=== PATIENT | female | born 2000 | race American Indian/Alaskan Native ===

== ENCOUNTER 2022-02-19 10:10 | Emergency (ER) | payer OTHER, SELFPAY ==
[2022-02-19 10:23] VITALS: BP 125/65; PULSE 80; RESP 16; TEMP 36.7; O2SAT 99; BMI 23.6
--- NOTE | 2022-02-19 11:53 | ED_ITS ---
HPI - General Adult General Chief complaint: Abdominal Pain Stated complaint: 20 weeks , Contractions Time Seen by Provider: 02/19/22 11:03 Source: patient Mode of arrival: ambulatory Limitations: no limitations History of Present Illness HPI narrative: 22-year-old female 21 weeks with a due date of 07/06/2022 1 Therapuetic and 1 miscarriage presents to ED for lower abdominal pain since yesterday. Patient states pain has worsened this morning. Patient denies any upper abdominal pain, nausea, vomiting vaginal bleeding. Patient states no fever or chills. Patient states having white discharge. Related Data Allergies Allergy/AdvReac Type Severity Reaction Status Date / Time No Known Allergies Allergy Verified 02/19/22 10:29 Review of Systems Review of Systems: Lower abdominal pain Yes all other systems are reviewed and are negative [facility] Social History Social History Advance Directives: No Advance Directives Information Provided: No Physical Exam ED Vital Signs: Vital Signs - 24 hr 02/19/22 10:23 Temperature 98.0 F Pulse Rate 80 Respiratory Rate 16 Blood Pressure 125/65 Pulse Oximetry 99 Oxygen Delivery Method Room Air BMI result Body Mass Index 23.6 Const General: cooperative, healthy appearing, comfortable, no acute distress, well developed, alert, awake and Physically active Orientation/consciousness: oriented to time and patient oriented x3 HENMT Head: Yes normal to inspection, Yes No palpable skull fracture present, Yes normocephalic, Yes atraumatic and No abrasion Eyes General: appearance normal, both eyes and all related structures Neck Neck: Yes normal visual inspection, Yes full ROM, Yes no lymphadenopathy, Yes no meningeal signs, Yes trachea midline, Yes supple, No anterior neck swelling and No tender Chest Chest palpation & inspection: normal inspection of the chest and normal palpation of entire chest wall Resp Effort & Inspection: normal respiratory effort and able to speak in complete sentences Auscultation: clear to auscultation bilaterally Cardio Jugular venous distension: no JVD Heart sounds: S1 normal heart sound present and S2 normal heart sound present GI Inspection: Yes normal to inspection and No abdominal wall ecchymosis Palpation (GI): not firm, Tenderness to palpation present (GI) in the LLQ, in the RLQ and suprapubicly, no guarding and not rigid General: No CVA tenderness and Yes no CVA tenderness Back/Spine/Pelvis Back: no CVA tenderness, No CVA tenderness and No back tenderness Skin General skin exam: no rashes or lesions noted and elasticity normal Neuro General: oriented to time, patient oriented x3, gait normal, no meningeal signs and CN's II-XI intact bilaterally Cranial nerves: Yes CN's II-XII intact bilaterally Extrem General: Yes normal to inspection and Yes full ROM Psych Appearance: grossly normal, well kempt and not disheveled Course Course Course Narrative: Case discussed with Dr. Menendez of information security specialist recommends [facility] information security specialist be called for transfer to [facility]. He does not recommend further workup in the ER. Not recommend pelvic exam. Patient's heart tone 139. Reevaluation(s) Reevaluation #1: Patient comfortable in bed. Spoke with [facility] OBGYN Dr. Matos who agreed that patient should come over to [facility] for further evaluation. Patient signed consent to be transferred and will go with her own private car. Patient safe for discharge Time: 16:44 Medical Decision Making MDM Narrative Medical decision making narrative: Twenty weeks abdominal pain Discharge Plan Discharge Clinical Impression: Abdominal pain during Patient Disposition: [facility] Transfer Details: [facility] Instructions: Abdominal Pain in (ED) Additional Instructions: Go to [facility] we made immediately after receiving paperwork. Emergency symptoms to be aware of his severe abdominal pain, vaginal bleeding, vaginal discharge, weakness, passing out, or any other concerning symptoms. Return here or [facility] immediately if he had them. You were accepted by Dr. Matos Interventions: Acute Care Transfer Worksheet (ED) Last Done: 02/19/22 12:59 Discharge Date/Time: 02/19/22 13:01 Print Language: Greenlandic
--- NOTE | 2022-02-19 12:24 | P.CONOB_ITS ---
OB Consult Note - [facility] Data Service Date: 02/19/22 Primary Care Provider: Debby Parmar NP Narrative I was consulted on Erin Arredondo I who is a 22 year old female 4 para 1021 at 21 weeks presents to ED for lower abdominal pain since yesterday.? Patient states pain has worsened this morning.? Patient denies any upper abdominal pain, nausea, vomiting, no vaginal bleeding, or leakage of fluid .? Patient states no fever or chills.? Patient states having white vaginal discharge OB [facility] Social History Social History Advance Directives: No Advance Directives Information Provided: No Meds Allergies Allergy/AdvReac Type Severity Reaction Status Date / Time No Known Allergies Allergy Verified 02/19/22 10:29 OB - CN: A/P Assessment and Plan (1) with generalized abdominal pain, antepartum: Status: Acute Plan Recommended to transfer the patient to [facility] in an effort to decrease the delay in care since there is no maternity unit at [facility] and no available obstetrical resources. I spent a total of 20 minutes reviewing the chart, communicating to the ER provider and documenting in the medical record
== END 2022-02-19 13:01 | disposition short-term general hospital (02) ==
PROVIDERS: Emergency Provider Emergency Medicine Emergency Medical Services; PCP Nurse Practitioner Primary Care
DX: O26.892 Other specified pregnancy related conditions, second trimester (principal); R10.30 Lower abdominal pain, unspecified; Z3A.21 21 weeks gestation of pregnancy
CPT/HCPCS: 99285

== ENCOUNTER 2023-11-20 19:18 | Emergency (ER) | payer OTHER, SELFPAY ==
[2023-11-20 19:20] VITALS: BP 116/65; PULSE 77; RESP 16; TEMP 36.4; O2SAT 99; BMI 25.1
--- OUTSIDE RECORDS SUMMARY | 2023-11-21 01:24 | XMS_ITS | Continuity of Care Document ---
Author Organization [facility] Address Unknown Care Team Providers Care Lighting Engineering Technician Name Role Phone Kathy RUSH, Hector Greenberg Primary Care Physician [id number] Date(s): 11/18/21 - 12/18/21 [facility] Allergies, Adverse Reactions, Alerts No Known Allergies Medications Colace sodium 100 mg oral capsule 100 mg, 1, capsule, By Mouth, 2 times a day, PRN, # 60 capsule, Refills 2, Tot. Refills 2, Maintenance, for constipation, 11/18/21 15:52:00 EDT, Route to Pharmacy Electronically, [facility]/pharmacy #[id number], Partial fill upon patient request if the prescriptio... Start Date: 11/18/21 Status: Ordered PNV oral tablet 1 tablet, By Mouth, Daily, 0 Refills, Maintenance, 11/29/18 13:11:44 EDT Start Date: 11/29/18 Status: Ordered Unisom 25 mg oral tablet 1 tablet = 25 mg, By Mouth, Daily at bedtime, # 30 tablet, 0 Refills, Maintenance, 11/26/21 15:43:00 EDT, [facility]/pharmacy #[id number], Partial fill upon patient request if the prescription is for a schedule II opioid drug. Start Date: 11/26/21 Status: Ordered Vitamin B6 25 mg oral tablet 1 tablet = 25 mg, By Mouth, Daily, # 100 tablet, 0 Refills, Maintenance, 11/26/21 15:43:00 EDT, [facility]/pharmacy #[id number], Partial fill upon patient request if the prescription is for a schedule II opioid drug. Start Date: 11/26/21 Status: Ordered Problem List Condition Effective Dates Status Health Status Inform ant BMI 20.0-20.9, adult(Confirmed) Active History of depression(Confirmed) 1 Active History of marijuana use(Confirmed) Active IBS (irritable bowel syndrome)(Confirmed) 2 Active Encounter for supervision of other normal , second trimester(Confirmed) Active Placental abnormality(Confirmed) Active Rubella equivocal - needs MM R after delivery(Confirmed) Active 1States has feelings og depression. Would like to see therapist. 2Not taking medication for IBS Social History Social History Type Response Smoking Status Former smoker, quit more than 30 days ago entered on: 12/08/21 Sex
--- OUTSIDE RECORDS SUMMARY | 2023-11-21 01:24 | XMS_ITS | Continuity of Care Document ---
Author Organization [facility] Address [address], [address]t [place] [address]- Care Team Providers Care Sawdust Machine Operator Name Role Phone Kathy RUSH, Hector Greenberg Primary Care Physician [facility] Date(s): 06/10/22 - [facility] [address], [address]th [place] [address]- Attending Physician: Tarah Miles MD Referring Physician: Ayde Alberts CNM Allergies, Adverse Reactions, Alerts No Known Allergies Immunizations Given and Recorded Vaccine Date Status Refusal Reason tetanus/diphtheria/pertussis, acel(Tdap) 1 04/29/22 Recorded tetanus/diphtheria/pertussis, acel(Tdap) 02/23/19 Recorded tetanus/diphtheria/pertussis, acel(Tdap) 05/12/10 Recorded Measles/Mumps/Rubella Virus Vaccine 05/14/19 Recor ded Measles/Mumps/Rubella Virus Vaccine 02/01/17 Recor ded Measles/Mumps/Rubella Virus Vaccine 02/06/02 Recor ded Measles/Mumps/Rubella Virus Vaccine 03/17/99 Recor ded influenza virus vaccine, inactivated 05/20/15 Andrea rded influenza virus vaccine, inactivated 05/16/14 Andrea rded influenza virus vaccine, inactivated 03/29/13 Andrea rded influenza virus vaccine, inactivated 05/12/10 Andrea rded Meningococcal Conjugate Vaccine 05/16/14 Recorded Meningococcal Conjugate Vaccine 09/23/10 Recorded hepatitis B pediatric vaccine 09/23/10 Recorded hepatitis B pediatric vaccine 08/11/10 Recorded hepatitis B pediatric vaccine 98 Recorded hepatitis B pediatric vaccine 98 Recorded hepatitis B pediatric vaccine 98 Recorded Human Papillomavirus Vaccine 05/12/10 Recorded Human Papillomavirus Vaccine 04/01/09 Recorded Human Papillomavirus Vaccine 01/22/09 Recorded Hepatitis A Pediatric Vaccine 01/22/09 Recorded Hepatitis A Pediatric Vaccine 01/18/08 Recorded Varicella Virus Vaccine 01/18/08 Recorded Varicella Virus Vaccine 03/17/99 Recorded Poliovirus Vaccine, Inactivated 02/06/02 Recorded Poliovirus Vaccine, Inactivated 98 Recorded Poliovirus Vaccine, Inactivated 98 Recorded diphtheria/tetanus/pertussis, acel(DTaP) 02/06/02 Recorded diphtheria/tetanus/pertussis, acel(DTaP) 07/15/99 Recorded diphtheria/tetanus/pertussis, acel(DTaP) 98 Recorded diphtheria/tetanus/pertussis, acel(DTaP) 98 Recorded diphtheria/tetanus/pertussis, acel(DTaP) 98 Recorded 1Result Comment: Right arm Medications acetaminophen 325 mg oral tablet 650 mg, By Mouth, Every 4 hours, PRN, (1-3), may give 325mg per patient preference and re-dose [id number] within 4 hours, if needed. Patient should only receive a total of 650mg of Acetaminophen every 4 hours., Refills 0, Maintenance, Pain , Mild, 1... Start Date: 06/24/22 Status: Ordered Nexplanon 68 mg subcutaneous implant 1 each = 68 mg, Subcutaneous Infusion, Once, # 1 each, 0 Refills, Soft Stop, 07/14/22 10:31:00 EST,[facility], Partial fill upon patient request if the prescription is for a schedule II opioid drug., 165.1, cm, 07/14/22 10:07:00 EST,... Start Date: 07/14/22 Status: Ordered PNV oral tablet 1 tablet, By Mouth, Daily, 0 Refills, Maintenance, 11/29/18 13:11:44 EDT Start Date: 11/29/18 Status: Ordered Problem List Condition Confirmation Course Effective Dates Status Health St atus Informant Anxiety 1, 2 Confirmed Active Back pain with sciatica Confirmed Active BMI 20.0-20.9, adult Confirmed Active COVID-19 Confirmed Active History of depression Confirmed Active History of marijuana use Confirmed Active IBS (irritable bowel syndrome) 3 Confirmed Active exam Confirmed Active Confirmed Active 1Patient reports anxiety is no longer a problem and that it was mostly due to having her daughter at a young age 2admits to heart racing and always crying overthinking 3Not taking medication for IBS Social History Social History Type Response Smoking Status Former smoker, quit more than 30 days ago entered on: 12/08/21 Sex Patient Care team information Care Team Personnel Name: Hector Chavez MD Position: [facility] Physician -Physician Practices Member Role: PCP Address: Address: [address] [place] [address]- Care Team Related Persons Name: SUSIE JAMES Address: home [address] [place] [address] Name: TANESHA BULLARD Address: [address] [address] Name: ALPHONSO BULLARD Address: [address] Address: home [address] [place] [address] Name: PATRICK CUEVAS Address: home [address] [place] [address]
--- OUTSIDE RECORDS SUMMARY | 2023-11-21 01:24 | XMS_ITS | Continuity of Care Document ---
Author Organization [facility] Address [address] [place] [address]- Care Team Providers Care Tape Cutting Machine Operator Name Role Phone Hector Chavez MD Primary Care Physician Encounter [facility] Date(s): 06/11/22 - 06/18/[address] [address]- Attending Physician: Deann Wong CNM Admitting Physician: Deann Wong CNM Allergies, Adverse Reactions, Alerts No Known [...] 98 Recorded 1Result Comment: Right arm Medications Colace sodium 100 mg oral capsule 100 mg, 1, capsule, By Mouth, 2 times a day, PRN, # 60 capsule, Refills 2, Tot. Refills 2, Maintenance, for constipation, 11/18/21 15:52:00 EDT, Route to Pharmacy Electronically, [facility]/pharmacy #[id number], Partial fill upon patient request if the prescriptio... Start Date: 11/18/21 Status: Ordered PNV oral tablet 1 tablet, By Mouth, Daily, 0 Refills, Maintenance, 11/29/18 13:11:44 EDT Start Date: 11/29/18 Status: Ordered Unisom 25 mg oral tablet 1 tablet = 25 mg, By Mouth, Daily at bedtime, # 30 tablet, 0 Refills, Maintenance, 11/26/21 15:43:00 EDT, [facility]/pharmacy #[id number], Partial fill upon patient request if the prescription is for a schedule II opioid drug. Start Date: 11/26/21 Status: Ordered Vitamin B6 25 mg oral tablet 1 tablet = 25 mg, By Mouth, Daily, # 100 tablet, 0 Refills, Maintenance, 11/26/21 15:43:00 EDT, [facility]/pharmacy #[id number], Partial fill upon patient request if the prescription is for a schedule II opioid drug. Start Date: 11/26/21 Status: Ordered Problem List Condition Confirmation Course Effective Dates Status Health St atus Informant Anxiety 1, 2 Confirmed Active Back pain with sciatica Confirmed Active BMI 20.0-20.9, adult Confirmed Active COVID-19 Confirmed Active Maternal care for restricted growth, antepartum Confirmed Active History of depression Confirmed Active History of marijuana use Confirmed Active IBS (irritable bowel syndrome) 3 Confirmed Active Confirmed Active 1Patient reports anxiety [...] Care team information Care Team Personnel Name: Kathy RUSH , Hector Greenberg Position: [facility] Physician -Physician Practices Member Role: PCP Address: Address: [address] [place] [address]- Care Team Related Persons Name: SUSIE JAMES Address: home [address] [address] Name: TANESHA BULLARD Address: home [address] [facility] [address] [place] [address] Name: PATRICK CUEVAS Address: home [address] [place] [address]
--- OUTSIDE RECORDS SUMMARY | 2023-11-21 01:24 | XMS_ITS | Continuity of Care Document ---
Author Organization [facility] Bibiarnie Hernandez [employer] [facility] Address [address], [address] [place] [address]- Care Team Providers Care Residential Program Manager Name Role Phone Kathy RUSH, Hector Greenberg Primary Care Physician Encounter [facility] Date(s): 06/26/22 - 07/26/22 [facility] [address], [address] [place] [address]- Attending Physician: Raj Smith Admitting Physician: Raj Smith Referring Physician: AdmtrRaj Allergies, Adverse Reactions, Alerts No Known Allergies [...] give 325mg per patient preference and re-dose [id number] within 4 hours, if needed. Patient should only receive a total of 650mg of Acetaminophen every 4 hours., Refills 0, Maintenance, Pain , Mild, 1... Start Date: 06/24/22 Status: Ordered Nexplanon 68 mg subcutaneous implant 1 each = 68 mg, Subcutaneous Infusion, Once, # 1 each, 0 Refills, Soft Stop, 07/14/22 10:31:00 EST,[facility], Partial fill upon patient request [...] Name: Kathy RUSH , Hector Greenberg Position: [facility] Physician -Physician Practices Member Role: PCP Address: Address: [address] [place] [address]- Care Team Related Persons Name: SUSIE JAMES Address: home [address] [place] [address] Name: TANESHA BULLARD Address: [address] [address] Name: ALPHONSO BULLARD Address: [address] Address: home [address] [place] [address] Name: PATRICK CUEVAS Address: home [address] [place] [address]
--- OUTSIDE RECORDS SUMMARY | 2023-11-21 01:24 | XMS_ITS | Continuity of Care Document ---
Author Organization [facility] Address [address], [address] [place] [address]- Care Team Providers Care Paste Up Worker Name Role Phone Kathy RUSH, Hector Greenberg Primary Care Physician [facility] Date(s): 06/19/22 - [facility] [address] [place] [address]- Attending Physician: Vivi Cox MD Referring Physician: Ayde Alberts CNM Allergies, [...] give 325mg per patient preference and re-dose [id number] within 4 hours, if needed. Patient should only receive a total of 650mg of Acetaminophen every 4 hours., Refills 0, Maintenance, Pain , Mild, 1... Start Date: 06/24/22 Status: Ordered Colace sodium 100 mg oral capsule 100 mg, 1, capsule, By Mouth, 2 times a day, PRN, # 60 capsule, Refills 2, Tot. Refills 2, Maintenance, for constipation, 11/18/21 15:52:00 EDT, Route to Pharmacy Electronically, [facility]/pharmacy #[id number], Partial fill upon patient request if the prescriptio... Start Date: 11/18/21 Status: Ordered ibuprofen 800 mg oral tablet 800 mg, 1, tablet, By Mouth, Every 8 hours, PRN, 800mg of Ibuprofen every 8 hours., # 30 tablet, Refills 0, Tot. Refills 0, Maintenance, Pain , Moderate, 06/24/22 10:40:00 EST, Route to Pharmacy Electronically, [facility]/pharmacy #[id number], Partial fill upon pa... Start Date: 06/24/22 Status: Ordered PNV oral tablet 1 tablet, By Mouth, Daily, 0 Refills, Maintenance, 11/29/18 13:11:44 EDT Start Date: 11/29/18 Status: Ordered Unisom 25 mg oral tablet 1 tablet = 25 mg, By Mouth, Daily at bedtime, # 30 tablet, 0 Refills, Maintenance, 11/26/21 15:43:00 EDT, [facility]/pharmacy #[id number], Partial fill upon patient request if the prescription is for a schedule II opioid drug. Start Date: 11/26/21 Status: Ordered Vitamin B6 25 mg oral tablet 1 tablet = 25 mg, By Mouth, Daily, # 100 tablet, 0 Refills, Maintenance, 11/26/21 15:43:00 EDT, [facility]/pharmacy #[id number], Partial fill upon patient request [...] 30 days ago entered on: 12/08/21 Sex Note * Event Display: PDC Biophysical Profile * Event Display: PDC Biophysical Profile Authored Date: [id number] OBSTETRICS REPORT PATIENT INFO: BESSYN: [id number] BMRN: [id number] : [birth year] (22 yrs)(F) Name: ROSSY JAMES Visit Date: 06/19/2022 01:38 pm PERFORMED BY: Performed By: Celia Caputo RDMS Attending: Dana Heredia MD Referred By: GUANAKITO Alberts CNM Location: [address] INDICATIONS: growth retardation, O36.5990 VITAL SIGNS: Height: 5'4 EVALUATION: Num Of Fetuses: 1 Heart Rate(bpm): 157 Cardiac Activity: Present Presentation: Cephalic Placenta: Anterior Amniotic Fluid MARII FV: Within normal limits MARII Sum(cm) Largest Pocket(cm) 18.1 5.9 RUQ(cm) RLQ(cm) LUQ(cm) LLQ(cm) 4.1 4.2 3.9 5.9 BIOPHYSICAL EVALUATION: Amniotic F.V: Within normal limits F. Tone: Observed F. Movement: Observed Score: 02/09 F. Breathing: Observed BIOMETRY: OB HISTORY: : 4 Term: 1 Livin GESTATIONAL AGE: LMP: 36w 5d Date: 10/05/21 CARLO: 07/12/22 Best: 36w 5d Det. By: LMP (10/05/21) CARLO: 07/12/22 DOPPLER - VESSELS: Umbilical Artery S/D %tile PI %tile 3.42 94 1.22 97 CERVIX UTERUS ADNEXA: Cervix Not well seen COMMENTS: BPP 8/8 Doppler of the umbilical artery showed evidence of increased placenta resistance. Delivery recommended at 37 weeks gestation with elevated Dopplers. call person CNM notified. Dana Heredia MD Electronically Signed Final Report 06/19/2022 02:49 pm * Event Display: PDC Biophysical Profile Authored Date: [id number] Please click on pdf link to open report Patient Care team information Care Team Personnel Name: Kathy RUSH , Hector Greenberg Position: [facility] Physician -Physician Practices Member Role: PCP Address: Address: [address] [place] [address]- Care Team Related Persons Name: SUSIE JAMES Address: home [address] [place] [address] Name: TANESHA BULLARD Address: [address] [address] Name: ALPHONSO BULLARD Address: [address] Address: [address] [place] [address] Name: PATRICK CUEVAS Address: home [address] [place] [address]
--- OUTSIDE RECORDS SUMMARY | 2023-11-21 01:24 | XMS_ITS | Continuity of Care Document ---
Author Organization [facility] Address [address] [address]- Care Team Providers Care Office Administrator Name Role Phone Kathy RUSH, Hector Greenberg Primary Care Physician [facility] Date(s): 02/13[facility]22 - [facility] [address] [address]- Attending Physician: Not on Staff, Attending MD Referring Physician: Carola Hodges CNM Allergies, Adverse Reactions, Alerts No Known Allergies Immunizations Given and Recorded Vaccine Date Status Refusal Reason Measles/Mumps/Rubella Virus Vaccine 05/14/19 Recor ded Measles/Mumps/Rubella Virus Vaccine 02/01/17 Recor ded Measles/Mumps/Rubella Virus Vaccine 02/06/02 Recor ded Measles/Mumps/Rubella Virus Vaccine 03/17/99 Recor ded tetanus/diphtheria/pertussis, acel(Tdap) 02/23/19 Recorded tetanus/diphtheria/pertussis, acel(Tdap) 05/12/10 Recorded influenza virus vaccine, inactivated 05/20/15 Andrea rded [...] acel(DTaP) 98 Recorded diphtheria/tetanus/pertussis, acel(DTaP) 98 Recorded Medications Colace sodium 100 mg oral capsule 100 mg, 1, capsule, By Mouth, 2 times a day, PRN, # 60 capsule, Refills 2, Tot. Refills 2, Maintenance, for constipation, 11/18/21 15:52:00 EDT, Route to Pharmacy Electronically, [facility]/pharmacy #[id number], Partial fill upon patient request if the prescriptio... Start Date: 11/18/21 Status: Ordered PNV oral tablet 1 tablet, By Mouth, Daily, 0 Refills, Maintenance, 11/29/18 13:11:44 EDT Start Date: 11/29/18 Status: Ordered Unisom 25 mg oral tablet 1 tablet = 25 mg, By Mouth, Daily at bedtime, # 30 tablet, 0 Refills, Maintenance, 11/26/21 15:43:00 EDT, [facility]/pharmacy #[id number], Partial fill upon patient request if the prescription is for a schedule II opioid drug. Start Date: 11/26/21 Status: Ordered Vitamin B6 25 mg oral tablet 1 tablet = 25 mg, By Mouth, Daily, # 100 tablet, 0 Refills, Maintenance, 11/26/21 15:43:00 EDT, [facility]/pharmacy #[id number], Partial fill upon patient request if the prescription is for a schedule II opioid drug. Start Date: 11/26/21 Status: Ordered Problem List Condition Effective Dates Status Health Status Inform ant Anxiety(Confirmed) 1, 2 Active Back pain with sciatica(Confirmed) Active BMI 20.0-20.9, adult(Confirmed) Active COVID-19(Confirmed) Active History of marijuana use(Confirmed) Active IBS (irritable bowel syndrome)(Confirmed) 3 Active 1Patient reports anxiety is no longer a problem and that it was mostly due to having her daughter at a young age 2admits to heart racing and always crying overthinking 3Not taking medication for IBS Social History Social History Type Response Smoking Status Former smoker, quit more than 30 days ago entered on: 12/08/21 Sex Care Team Personnel Name: Kathy RUSH , Hector Greenberg Address: [address] [place] [id number]
--- OUTSIDE RECORDS SUMMARY | 2023-11-21 01:24 | XMS_ITS | Continuity of Care Document ---
Author Organization [facility] Pioneer Corbett Address [address] [place] [address]- Care Team Providers Care General Supervisor Name Role Phone Hector Chavez MD Primary Care Physician Encounter [facility] [place] Date(s): 06/30/22 - 07/30/[address] [address]- Attending Physician: Raj Smith Admitting Physician: AdmtrRaj Referring Physician: Admtr, ArLetty Allergies, Adverse Reactions, Alerts No Known Allergies [...] give 325mg per patient preference and re-dose [id number] within 4 hours, if needed. Patient should only receive a total of 650mg of Acetaminophen every 4 hours., Refills 0, Maintenance, Pain , Mild, 1... Start Date: 06/24/22 Status: Ordered Nexplanon 68 mg subcutaneous implant 1 each = 68 mg, Subcutaneous Infusion, Once, # 1 each, 0 Refills, Soft Stop, 07/14/22 10:31:00 EST,[facility], Partial fill upon patient [...] Name: Kathy RUSH , Hector Greenberg Position: [facility] Physician -Physician Practices Member Role: PCP Address: Address: [address] [place] [address]- Care Team Related Persons Name: SUSIE JAMES Address: home [address] [place] [address] Name: TANESHA BULLARD Address: home [address] [address] Name: ALPHONSO BULLARD Address: [address] Address: home [address] [place] [address] Name: PATRICK CUEVAS Address: home [address] [place] [address]
--- OUTSIDE RECORDS SUMMARY | 2023-11-21 01:24 | XMS_ITS | Continuity of Care Document ---
Author Organization [facility] Address [address] [place] [address]- Care Team Providers Care Volunteer Services Manager Name Role Phone Hector Chavez MD Primary Care Physician Encounter [place] Date(s): 06/16/22 - 07/16/[address] [address]- Allergies, Adverse Reactions, Alerts No Known Allergies [...] give 325mg per patient preference and re-dose [id number] within 4 hours, if needed. Patient should only receive a total of 650mg of Acetaminophen every 4 hours., Refills 0, Maintenance, Pain , Mild, 1... Start Date: 06/24/22 Status: Ordered Nexplanon 68 mg subcutaneous implant 1 each = 68 mg, Subcutaneous Infusion, Once, # 1 each, 0 Refills, Soft Stop, 07/14/22 10:31:00 EST,[facility], Partial fill upon patient [...] Name: Kathy RUSH , Hector Greenberg Position: [facility] Physician -Physician Practices Member Role: PCP Address: Address: [address] [place] [address]- Care Team Related Persons Name: SUSIE JAMES Address: home [address] [place] [address] Name: TANESHA BULLARD Address: home [address] [address] Name: ALPHONSO BULLARD Address: [address] Address: home [address] [place] [address] Name: PATRICK CUEVAS Address: home [address] [place] [address]
--- OUTSIDE RECORDS SUMMARY | 2023-11-21 01:24 | XMS_ITS | Continuity of Care Document ---
Author [facility] Address [address] [address]- Care Team Providers Care Interventional Radiologist Name Role Phone Kathy RUSH, Hector Greenberg Primary Care Physician [facility] Date(s): 02/19/22 - 03/21/[facility] [address] [address]- Allergies, Adverse Reactions, Alerts No Known Allergies [...] 11/18/21 15:52:00 EDT, Route to Pharmacy Electronically, [facility]/pharmacy #[id number], Partial fill upon patient request if the prescriptio... Start Date: 11/18/21 Status: Ordered PNV oral tablet 1 tablet, By Mouth, Daily, 0 Refills, Maintenance, 11/29/18 13:11:44 EDT Start Date: 11/29/18 Status: Ordered Unisom 25 mg oral tablet 1 tablet = 25 mg, By Mouth, Daily at bedtime, # 30 tablet, 0 Refills, Maintenance, 11/26/21 15:43:00 EDT, [facility]/pharmacy #[id number], Partial fill upon patient request if the prescription is for a schedule II opioid drug. Start Date: 11/26/21 Status: Ordered Vitamin B6 25 mg oral tablet 1 tablet = 25 mg, By Mouth, Daily, # 100 tablet, 0 Refills, Maintenance, 11/26/21 15:43:00 EDT, [facility]/pharmacy #[id number], Partial fill upon patient request [...] Name: Kathy RUSH , Hector Greenberg Address: [address] [place] [id number]
--- OUTSIDE RECORDS SUMMARY | 2023-11-21 01:24 | XMS_ITS | Continuity of Care Document ---
Author Organization [facility] Address [address] [place] [address]- Care Team Providers Care Project Coordinator Rn Name Role Phone Hector Chavez MD Primary Care Physician [place] [facility] [place] - 07/17/[address] [address]- Allergies, Adverse Reactions, Alerts No Known Allergies [...] give 325mg per patient preference and re-dose [id number] within 4 hours, if needed. Patient should only receive a total of 650mg of Acetaminophen every 4 hours., Refills 0, Maintenance, Pain , Mild, 1... Start Date: 06/24/22 Status: Ordered Nexplanon 68 mg subcutaneous implant 1 each = 68 mg, Subcutaneous Infusion, Once, # 1 each, 0 Refills, Soft Stop, 07/14/22 10:31:00 EST,[facility], Partial fill upon patient [...] Name: Kathy RUSH , Hector Greenberg Position: [facility] Physician -Physician Practices Member Role: PCP Address: Address: [address] [place] [address]- Care Team Related Persons Name: SUSIE JAMES Address: home [address] [place] [address] Name: TANESHA BULLARD Address: home [address] [address] Name: ALPHONSO BULLARD Address: [address] Address: home [address] [place] [address] Name: PATRICK CUEVAS Address: home [address] [place] [address]
--- OUTSIDE RECORDS SUMMARY | 2023-11-21 01:24 | XMS_ITS | Continuity of Care Document ---
Author [facility] Address [address] [address]- Care Team Providers Care Internet Sales Manager Name Role Phone Kathy RUSH, Hector Greenberg Primary Care Physician [facility] Date(s[facility] 04/29/22 - [facility]/30/22 [facility] [address] [address]- Attending Physician: Not on Staff, Attending MD Referring Physician: Natasha Matos CNM Allergies, Adverse Reactions, Alerts No Known [...] give 325mg per patient preference and re-dose [id number] within 4 hours, if needed. Patient should only receive a total of 650mg of Acetaminophen every 4 hours., Refills 0, Maintenance, Pain , Mild, 1... Start Date: 06/24/22 Status: Ordered Nexplanon 68 mg subcutaneous implant 1 each = 68 mg, Subcutaneous Infusion, Once, # 1 each, 0 Refills, Soft Stop, 07/14/22 10:31:00 EST,[facility], Partial fill upon patient [...] Name: Kathy RUSH , Hector Greenberg Position: [facility] Physician -Physician Practices Member Role: PCP Address: Address: [address] [place] [address]- Care Team Related Persons Name: SUSIE JAMES Address: home [address] [place] [address] Name: TANESHA BULLARD Address: home [address] [address] Name: ALPHONSO BULLARD Address: [address] Address: home [address] [place] [address] Name: PATRICK CUEVAS Address: [address] [place] [address]
--- OUTSIDE RECORDS SUMMARY | 2023-11-21 01:24 | XMS_ITS | Continuity of Care Document ---
Author Organization [facility] Address [address] [address]- Care Team Providers Care Transmission Mechanic Name Role Phone Kathy RUSH, Hector Greenberg Primary Care Physician [facility] Date(s): 08/04/22 - 09/03/22 [facility] [address] [address]- Attending Physician: Raj Smith Admitting Physician: Raj [...] give 325mg per patient preference and re-dose [id number] within 4 hours, if needed. Patient should only receive a total of 650mg of Acetaminophen every 4 hours., Refills 0, Maintenance, Pain , Mild, 1... Start Date: 06/24/22 Status: Ordered Nexplanon 68 mg subcutaneous implant 1 each = 68 mg, Subcutaneous Infusion, Once, # 1 each, 0 Refills, Soft Stop, 07/14/22 10:31:00 EST,[facility], Partial fill upon patient request if the prescription is for a schedule II opioid drug., 165.1, cm, 07/14/22 10:07:00 EST,... Start Date: 07/14/22 Status: Ordered Nexplanon 68 mg subcutaneous implant 1 each = 68 mg, Subcutaneous Infusion, Once, 0 Refills, Maintenance, 08/04/22 17:57:00 EST, Partialfill upon patient request if the prescription is for a schedule II opioid drug. Start Date: 08/04/22 Status: Ordered PNV oral tablet 1 tablet, [...] Name: Kathy RUSH , Hector Greenberg Position: [facility] Physician -Physician Practices Member Role: PCP Address: Address: [address] [place] [address]- Care Team Related Persons Name: SUSIE JAMES Address: home [address] [place] [address] Name: TANESHA BULLARD Address: home [address] [address] Name: ALPHONSO BULLARD Address: [address] Address: home [address] [place] [address] Name: PATRICK CUEVAS Address: home [address] [place] [address]
--- OUTSIDE RECORDS SUMMARY | 2023-11-21 01:24 | XMS_ITS | Continuity of Care Document ---
Author Organization [facility] Pioneer [facility] Address [address] [place] [address]- Care Team Providers Care Environmental Services Specialist Name Role Phone Hector Chavez MD Primary Care Physician En[place] [facility] [place] Date(s): 06/11/22 - 07/15/[address] [address]- Attending Physician: Jono Buck CNM Admitting Physician: Jono Buck CNM Allergies, Adverse Reactions, Alerts No Known [...] give 325mg per patient preference and re-dose [id number] within 4 hours, if needed. Patient should only receive a total of 650mg of Acetaminophen every 4 hours., Refills 0, Maintenance, Pain , Mild, 1... Start Date: 06/24/22 Status: Ordered Nexplanon 68 mg subcutaneous implant 1 each = 68 mg, Subcutaneous Infusion, Once, # 1 each, 0 Refills, Soft Stop, 07/14/22 10:31:00 EST,[facility], Partial fill upon patient [...] Name: Kathy RUSH , Hector Greenberg Position: [facility] Physician -Physician Practices Member Role: PCP Address: Address: [address] [place] [address]- Care Team Related Persons Name: SUSIE JAMES Address: home [address] [place] [address] Name: TANESHA BULLARD Address: home [address] [address] Name: ALPHONSO BULLARD Address: [address] Address: home [address] [place] [address] Name: PATRICK CUEVAS Address: home [address] [place] [address]
--- OUTSIDE RECORDS SUMMARY | 2023-11-21 01:24 | XMS_ITS | Continuity of Care Document ---
Author Organization [facility] Address [address] [facility], 4t [place] [address]- Care Team Providers Care Engine Installer Name Role Phone Kathy RUSH, Hector Greenberg Primary Care Physician En[facility] [place] Date(s): 06/10/22 - 07/26/22 [facility] [address], 4th [place] [address]- Attending Physician: Vivi Cox MD Referring Physician: [...] give 325mg per patient preference and re-dose [id number] within 4 hours, if needed. Patient should only receive a total of 650mg of Acetaminophen every 4 hours., Refills 0, Maintenance, Pain , Mild, 1... Start Date: 06/24/22 Status: Ordered Nexplanon 68 mg subcutaneous implant 1 each = 68 mg, Subcutaneous Infusion, Once, # 1 each, 0 Refills, Soft Stop, 07/14/22 10:31:00 EST,[facility], Partial fill upon patient [...] Name: Kathy RUSH , Hector Greenberg Position: [facility] Physician -Physician Practices Member Role: PCP Address: Address: [address] [place] [address]- Care Team Related Persons Name: SUSIE JAMES Address: home [address] [place] [address] Name: TANESHA BULLARD Address: home [address] [address] Name: ALPHONSO BULLARD Address: [address] Address: home [address] [place] [address] Name: PATRICK CUEVAS Address: home [address] [place] [address]
--- OUTSIDE RECORDS SUMMARY | 2023-11-21 01:24 | XMS_ITS | Continuity of Care Document ---
Author Organization [facility] Address [address] [address]- Care Team Providers Care Cardiac Monitor Name Role Phone Kathy RUSH, Hector Greenberg Primary Care Physician [facility] Date(s): 02/16/22 - 03/19/22 [facility] [address] [address]- Attending Physician: Not on Staff, Attending MD [...] Name: Kathy RUSH , Hector Greenberg Address: [address] [place] [id number]
--- OUTSIDE RECORDS SUMMARY | 2023-11-21 01:24 | XMS_ITS | Continuity of Care Document ---
Author Organization [facility] Address [address] [address]- Care Team Providers Care Brush Trimming Machine Setter Name Role Phone Kathy RUSH, Hector Greenberg Primary Care Physician [facility] Date(s): 02/18/22 - 03/26/22 [facility] [address] [address]- Attending Physician: Not on Staff, Attending MD [...] 11/18/21 15:52:00 EDT, Route to Pharmacy Electronically, [facility]/pharmacy #[id number], Partial fill upon patient request if the prescriptio... Start Date: 11/18/21 Status: Ordered PNV oral tablet 1 tablet, By Mouth, Daily, 0 Refills, Maintenance, 11/29/18 13:11:44 EDT Start Date: 11/29/18 Status: Ordered Unisom 25 mg oral tablet 1 tablet = 25 mg, By Mouth, Daily at bedtime, # 30 tablet, 0 Refills, Maintenance, 11/26/21 15:43:00 EDT, [facility]/pharmacy #[id number], Partial fill upon patient request if the prescription is for a schedule II opioid drug. Start Date: 11/26/21 Status: Ordered Vitamin B6 25 mg oral tablet 1 tablet = 25 mg, By Mouth, Daily, # 100 tablet, 0 Refills, Maintenance, 11/26/21 15:43:00 EDT, [facility]/pharmacy #[id number], Partial fill upon patient [...] Name: Kathy RUSH , Hector Greenberg Address: [address] [place] [id number]
--- OUTSIDE RECORDS SUMMARY | 2023-11-21 01:24 | XMS_ITS | Continuity of Care Document ---
Author [facility] Address [address] [address]- Care Team Providers Care Motor Route Carrier Name Role Phone Kathy RUSH, Hector Greenberg Primary Care Physician [facility] Date(s): 04/15/22 - 05/15/22 [facility] [address] [address]- Allergies, Adverse Reactions, Alerts No Known Allergies [...] 11/18/21 15:52:00 EDT, Route to Pharmacy Electronically, [facility]/pharmacy #[id number], Partial fill upon patient request if the prescriptio... Start Date: 11/18/21 Status: Ordered PNV oral tablet 1 tablet, By Mouth, Daily, 0 Refills, Maintenance, 11/29/18 13:11:44 EDT Start Date: 11/29/18 Status: Ordered Unisom 25 mg oral tablet 1 tablet = 25 mg, By Mouth, Daily at bedtime, # 30 tablet, 0 Refills, Maintenance, 11/26/21 15:43:00 EDT, [facility]/pharmacy #[id number], Partial fill upon patient request if the prescription is for a schedule II opioid drug. Start Date: 11/26/21 Status: Ordered Vitamin B6 25 mg oral tablet 1 tablet = 25 mg, By Mouth, Daily, # 100 tablet, 0 Refills, Maintenance, 11/26/21 15:43:00 EDT, [facility]/pharmacy #[id number], Partial fill upon patient request if the prescription is for a schedule II opioid drug. Start Date: 11/26/21 Status: Ordered Problem List Condition Confirmation Course Effective Dates Status Health St atus Informant Anxiety 1, 2 Confirmed Active Back pain with sciatica Confirmed Active BMI 20.0-20.9, adult Confirmed Active COVID-19 Confirmed Active History of marijuana use Confirmed Active IBS (irritable bowel syndrome) 3 Confirmed Active 1Patient reports anxiety is no [...] Name: Kathy RUSH , Hector Greenberg Position: [facility] Physician -Physician Practices Member Role: PCP Address: Address: [address] [place] [address]- Care Team Related Persons Name: SUSIE JAMES Address: [address] [address] Name: TANESHA BULLARD Address: home [address] [facility] [address] [place] [address] Name: PATRICK CUEVAS Address: home [address] [place] [address]
--- OUTSIDE RECORDS SUMMARY | 2023-11-21 01:24 | XMS_ITS | Continuity of Care Document ---
Author Organization [facility] Address [address] [facility], 4t [place] [address]- Care Team Providers Care Football Pad Repairer Name Role Phone Kathy RUSH, Hector Greenberg Primary Care Physician En[facility] [place] Date(s): 06/10/22 - 07/16/22 [facility] [address], 4th [place] [address]- Attending Physician: Tarah Miles MD Referring Physician: [...] give 325mg per patient preference and re-dose [id number] within 4 hours, if needed. Patient should only receive a total of 650mg of Acetaminophen every 4 hours., Refills 0, Maintenance, Pain , Mild, 1... Start Date: 06/24/22 Status: Ordered Nexplanon 68 mg subcutaneous implant 1 each = 68 mg, Subcutaneous Infusion, Once, # 1 each, 0 Refills, Soft Stop, 07/14/22 10:31:00 EST,[facility], Partial fill upon patient [...] Team Personnel Name: Hector Chavez MD Position: [facility] Physician -Physician Practices Member Role: PCP Address: Address: [address] [place] [address]- Care Team Related Persons Name: SUSIE JAMES Address: home [address] [place] [address] Name: TANESHA BULLARD Address: home [address] [address] Name: ALPHONSO BULLARD Address: [address] Address: home [address] [place] [address] Name: PATRICK CUEVAS Address: home [address] [place] [address]
--- OUTSIDE RECORDS SUMMARY | 2023-11-21 01:24 | XMS_ITS | Continuity of Care Document ---
Author Organization [facility] Address Unknown Care Team Providers Care Computer Graphics Illustrator Name Role Phone Kathy RUSH, Hector Greenberg [id number] 12[facility]21 - 01/08/22 [facility] Allergies, Adverse Reactions, Alerts No Known Allergies Medications Colace sodium 100 mg oral capsule 100 mg, 1, capsule, By Mouth, 2 times a day, PRN, # 60 capsule, Refills 2, Tot. Refills 2, Maintenance, for constipation, 11/18/21 15:52:00 EDT, Route to Pharmacy Electronically, [facility]/pharmacy #[id number], Partial fill upon patient request if the prescriptio... Start Date: 11/18/21 Status: Ordered PNV oral tablet 1 tablet, By Mouth, Daily, 0 Refills, Maintenance, 11/29/18 13:11:44 EDT Start Date: 11/29/18 Status: Ordered Unisom 25 mg oral tablet 1 tablet = 25 mg, By Mouth, Daily at bedtime, # 30 tablet, 0 Refills, Maintenance, 11/26/21 15:43:00 EDT, [facility]/pharmacy #[id number], Partial fill upon patient [...]
--- OUTSIDE RECORDS SUMMARY | 2023-11-21 01:24 | XMS_ITS | Continuity of Care Document ---
Author Organization [facility] Address [address] [address]- Care Team Providers Care Welding Machine Operator Helper Arc Name Role Phone Kathy RUSH, Hector Greenberg Primary Care Physician [facility] Date(s): 04/29/22 - 08/13/22 [facility] [address] [address]- Attending Physician: Not on Staff, Attending MD Admitting Physician: Juno Trimble MD Referring Physician: Natasha Matos CNM Allergies, [...] give 325mg per patient preference and re-dose [id number] within 4 hours, if needed. Patient should only receive a total of 650mg of Acetaminophen every 4 hours., Refills 0, Maintenance, Pain , Mild, 1... Start Date: 06/24/22 Status: Ordered Nexplanon 68 mg subcutaneous implant 1 each = 68 mg, Subcutaneous Infusion, Once, # 1 each, 0 Refills, Soft Stop, 07/14/22 10:31:00 EST,[facility], Partial fill upon patient [...] Name: Kathy RUSH , Hector Greenberg Position: [facility] Physician -Physician Practices Member Role: PCP Address: Address: [address] [place] [address]- Care Team Related Persons Name: SUSIE JAMES Address: home [address] [place] [address] Name: TANESHA BULLARD Address: home [address] [address] Name: ALPHONSO BULLARD Address: [address] Address: home [address] [place] [address] Name: PATRICK CUEVAS Address: [address] [place] [address]
--- OUTSIDE RECORDS SUMMARY | 2023-11-21 01:24 | XMS_ITS | Continuity of Care Document ---
[facility] Organization [facility] Address [address] [facility], 4t [place] [address]- Care Team Providers Care See Wheeler Name Role Phone Kathy RUSH, Hector Greenberg Primary Care Physician [place] [facility] [facility] CorbettWhat[facility] [address], 4th [place] [address]- Attending Physician: Vivi Cox MD Referring Physician: Natasha Matos CNM Allergies, [...] 11/18/21 15:52:00 EDT, Route to Pharmacy Electronically, [facility]/pharmacy #[id number], Partial fill upon patient request if the prescriptio... Start Date: 11/18/21 Status: Ordered PNV oral tablet 1 tablet, By Mouth, Daily, 0 Refills, Maintenance, 11/29/18 13:11:44 EDT Start Date: 11/29/18 Status: Ordered Unisom 25 mg oral tablet 1 tablet = 25 mg, By Mouth, Daily at bedtime, # 30 tablet, 0 Refills, Maintenance, 11/26/21 15:43:00 EDT, [facility]/pharmacy #[id number], Partial fill upon patient [...] 12/08/21 Sex Note * Event Display: PDC Follow up Growth * Event Display: PDC Follow up Growth Authored Date: [id number] OBSTETRICS REPORT PATIENT INFO: CMRN: [id number] BMRN: [id number] : [birth year] (22 yrs)(F) Name: ROSSY JAMES Visit Date: 06/05/2022 03:50 pm PERFORMED BY: Performed By: Celia Caputo RDOK Attending: Tony Carrillo MD Referred By: GUANAKITO Matos CNM Location: [address] INDICATIONS: Uterine size-date discrepancy O26.84_ VITAL SIGNS: Height: 5'4 EVALUATION: Num Of Fetuses: 1 Heart Rate(bpm): 152 Cardiac Activity: Present Presentation: Cephalic Placenta: Anterior Amniotic Fluid MARII FV: Within normal limits MARII Sum(cm) Largest Pocket(cm) 22.3 7.2 RUQ(cm) RLQ(cm) LUQ(cm) LLQ(cm) 3.8 4.1 7.2 7.2 BIOPHYSICAL EVALUATION: Amniotic F.V: Within normal limits F. Tone: Observed F. Movement: Observed Score: 02/09 F. Breathing: Observed BIOMETRY: BPD: 80.2 mm G.Age: 32w 1d 3 % HC: 294.2 mm G.Age: 32w 3d < 1 % AC: 285.8 mm G.Age: 32w 4d 7 % FL: 65.3 mm G.Age: 33w 5d 17 % CI: 74.82 % 70 - 86 FL/HC: 22.2 % 20.1 - 22.3 HC/AC: 1.03 0.93 - 1.11 FL/BPD: 81.4 % 71 - 87 FL/AC: 22.8 % 20 - 24 Est. FW: 2067 gm 4 lb 9 oz 7 % OB HISTORY: : 4 Term: 1 Livin GESTATIONAL AGE: LMP: 34w 5d Date: 10/05/21 CARLO: 07/12/22 U/S Today: 32w 5d CARLO: 07/26/22 Best: 34w 5d Det. By: LMP (10/05/21) CARLO: 07/12/22 DOPPLER - VESSELS: Umbilical Artery S/D %tile PI %tile 3.56 94 1.17 94 CERVIX UTERUS ADNEXA: Cervix Not well seen COMMENTS: The estimated weight is less than the 10th percentile, consistent with growth restriction (FGR). The umbilical artery Doppler is high normal. BP 02/09 Recommendations: Twice weekly testing with BPP/UA Doppler and NST Growth scan in 3 weeks Delivery at 38-39 weeks, earlier if indicated by testing Tony Carrillo MD Electronically Signed Final Report 06/05/2022 05:48 pm * Event Display: PDC Follow up Growth Authored Date: Please click on pdf link to open report Patient Care team information Care Team Personnel Name: Kathy RUSH , Hector Greenberg Position: [facility] Physician -Physician Practices Member Role: PCP Address: Address: [address] [place] [address]- Care Team Related Persons Name: SUSIE JAMES Address: home [address] [place] [address] Name: TANESHA BULLARD Address: home [address] [place] [address] Name: PATRICK CUEVAS Address: home [address] [place] [address]
--- OUTSIDE RECORDS SUMMARY | 2023-11-21 01:24 | XMS_ITS | Continuity of Care Document ---
Author Organization [facility] Address [address] [address]- Care Team Providers Care Customer Orders Clerk Name Role Phone Kathy RUSH, Hector Greenberg Primary Care Physician [facility] Date(s): 02/12/22 - 03/14/22 [facility] [address] [address]- Allergies, Adverse Reactions, Alerts No Known Allergies [...] 11/18/21 15:52:00 EDT, Route to Pharmacy Electronically, [facility]/pharmacy #[id number], Partial fill upon patient request if the prescriptio... Start Date: 11/18/21 Status: Ordered PNV oral tablet 1 tablet, By Mouth, Daily, 0 Refills, Maintenance, 11/29/18 13:11:44 EDT Start Date: 11/29/18 Status: Ordered Unisom 25 mg oral tablet 1 tablet = 25 mg, By Mouth, Daily at bedtime, # 30 tablet, 0 Refills, Maintenance, 11/26/21 15:43:00 EDT, [facility]/pharmacy #[id number], Partial fill upon patient request if the prescription is for a schedule II opioid drug. Start Date: 11/26/21 Status: Ordered Vitamin B6 25 mg oral tablet 1 tablet = 25 mg, By Mouth, Daily, # 100 tablet, 0 Refills, Maintenance, 11/26/21 15:43:00 EDT, [facility]/pharmacy #[id number], Partial fill upon patient request if [...] Name: Kathy RUSH , Hector Greenberg Address: [address] [place] [address] [id number]
--- OUTSIDE RECORDS SUMMARY | 2023-11-21 01:24 | XMS_ITS | Continuity of Care Document ---
Author Organization [facility] Address [address] [place] [address]- Care Team Providers Care Principal System Software Engineer Name Role Phone Kathy RUSH, Hector Greenberg Primary Care Physician Encounter [facility] Date(s): 06/11/22 - 07/22/[address] [address]- Attending Physician: Leanne De Jesus MD Admitting Physician: Leanne De Jesus MD Allergies, Adverse Reactions, Alerts No Known Allergies [...] give 325mg per patient preference and re-dose [id number] within 4 hours, if needed. Patient should only receive a total of 650mg of Acetaminophen every 4 hours., Refills 0, Maintenance, Pain , Mild, 1... Start Date: 06/24/22 Status: Ordered Nexplanon 68 mg subcutaneous implant 1 each = 68 mg, Subcutaneous Infusion, Once, # 1 each, 0 Refills, Soft Stop, 07/14/22 10:31:00 EST,[facility], Partial fill upon patient request [...] Team Personnel Name: Hector Chavez MD Position: [facility] Physician -Physician Practices Member Role: PCP Address: Address: [address] [place] [address]- Care Team Related Persons Name: SUSIE JAMES Address: home [address] [place] [address] Name: TANESHA BULLARD Address: home [address] [address] Name: ALPHONSO BULLARD Address: [address] Address: home [address] [place] [address] Name: PATRICK CUEVAS Address: home [address] [place] [address]
--- OUTSIDE RECORDS SUMMARY | 2023-11-21 01:24 | XMS_ITS | Continuity of Care Document ---
Author Organization [facility] Address [address] [address]- Care Team Providers Care Correctional Officer Lieutenant Name Role Phone Kathy RUSH, Hector Greenberg Primary Care Physician [facility] Date(s): 04/29/22 - 07/16/[facility] [address] [address]- Attending Physician: Not on Staff, Attending MD [...] give 325mg per patient preference and re-dose [id number] within 4 hours, if needed. Patient should only receive a total of 650mg of Acetaminophen every 4 hours., Refills 0, Maintenance, Pain , Mild, 1... Start Date: 06/24/22 Status: Ordered Nexplanon 68 mg subcutaneous implant 1 each = 68 mg, Subcutaneous Infusion, Once, # 1 each, 0 Refills, Soft Stop, 07/14/22 10:31:00 EST,[facility], Partial fill upon patient request [...] Name: Kathy RUSH , Hector Greenberg Position: [facility] Physician -Physician Practices Member Role: PCP Address: Address: [address] [place] [address]- Care Team Related Persons Name: SUSIE JAMES Address: home [address] [place] [address] Name: TANESHA BULLARD Address: home [address] [address] Name: ALPHONSO BULLARD Address: [address] Address: home [address] [place] [address] Name: PATRICK CUEVAS Address: home [address] [place] [address]
--- OUTSIDE RECORDS SUMMARY | 2023-11-21 01:25 | XMS_ITS | Continuity of Care Document ---
Author Organization [facility] Address [address] [address]- Care Team Providers Care Zinc Plate Cutter Name Role Phone Kathy RUSH, Hector Greenberg Primary Care Physician [facility] Date(s): 04/29/22 - 07/23/22 [facility] [address] [address]- Attending Physician: Not on Staff, Attending MD [...] give 325mg per patient preference and re-dose [id number] within 4 hours, if needed. Patient should only receive a total of 650mg of Acetaminophen every 4 hours., Refills 0, Maintenance, Pain , Mild, 1... Start Date: 06/24/22 Status: Ordered Nexplanon 68 mg subcutaneous implant 1 each = 68 mg, Subcutaneous Infusion, Once, # 1 each, 0 Refills, Soft Stop, 07/14/22 10:31:00 EST,[facility], Partial fill upon patient [...] Name: Kathy RUSH , Hector Greenberg Position: [facility] Physician -Physician Practices Member Role: PCP Address: Address: [address] [place] [address]- Care Team Related Persons Name: SUSIE JAMES Address: home [address] [place] [address] Name: TANESHA BULLARD Address: home [address] [address] Name: ALPHONSO BULLARD Address: [address] Address: home [address] [place] [address] Name: PATRICK CUEVAS Address: home [address] [place] [address]
--- OUTSIDE RECORDS SUMMARY | 2023-11-21 01:25 | XMS_ITS | Continuity of Care Document ---
Author Organization [facility] Address [address] [place] [address]- Care Team Providers Care Otolaryngology Nurse Name Role Phone Hector Chavez MD Primary Care Physician Encounter [facility] [place] Date(s): 06/16/22 - 07/17/[address] [address]- Attending Physician: Fabiola Kaur CNM Admitting Physician: Fabiola Kaur CNM Allergies, Adverse Reactions, Alerts No Known [...] give 325mg per patient preference and re-dose [id number] within 4 hours, if needed. Patient should only receive a total of 650mg of Acetaminophen every 4 hours., Refills 0, Maintenance, Pain , Mild, 1... Start Date: 06/24/22 Status: Ordered Nexplanon 68 mg subcutaneous implant 1 each = 68 mg, Subcutaneous Infusion, Once, # 1 each, 0 Refills, Soft Stop, 07/14/22 10:31:00 EST,[facility], Partial fill upon patient [...] Team Personnel Name: Hector Chavez MD Position: [facility] Physician -Physician Practices Member Role: PCP Address: Address: [address] [place] [address]- Care Team Related Persons Name: SUSIE JAMES Address: home [address] [place] [address] Name: TANESHA BULLARD Address: home [address] [address] Name: ALPHONSO BULLARD Address: [address] Address: home [address] [place] [address] Name: PATRICK CUEVAS Address: home [address] [place] [address]
--- OUTSIDE RECORDS SUMMARY | 2023-11-21 01:25 | XMS_ITS | Continuity of Care Document ---
Author Organization [facility] Address Unknown Care Team Providers Care Clip Coater Name Role Phone Hector Chavez MD Primary [id number] 12[facility] - 01/02/[facility] Allergies, Adverse Reactions, Alerts No Known Allergies Medications Colace sodium 100 mg oral capsule 100 mg, 1, capsule, By Mouth, 2 times a day, PRN, # 60 capsule, Refills 2, Tot. Refills 2, Maintenance, for constipation, 11/18/21 15:52:00 EDT, Route to Pharmacy Electronically, [facility]/pharmacy #[id number], Partial fill upon patient request if the prescriptio... Start Date: 11/18/21 Status: Ordered PNV oral tablet 1 tablet, By Mouth, Daily, 0 Refills, Maintenance, 11/29/18 13:11:44 EDT Start Date: 11/29/18 Status: Ordered Unisom 25 mg oral tablet 1 tablet = 25 mg, By Mouth, Daily at bedtime, # 30 tablet, 0 Refills, Maintenance, 11/26/21 15:43:00 EDT, [facility]/pharmacy #[id number], Partial fill upon patient request [...]
--- OUTSIDE RECORDS SUMMARY | 2023-11-21 01:25 | XMS_ITS | Continuity of Care Document ---
Author Organization [facility] David kaiserOpenLabelbobby [facility] Address [address] [facility], [address] [place] [address]- Care Team Providers Care Power System Dispatcher Name Role Phone Kathy RUSH, Hector Greenberg Primary Care Physician En[place] [facility] Date(s): 11/13/21 - 12/13/21 [facility] Corbett[facility] [address] [facility], 4th [place] [address]- Allergies, Adverse Reactions, Alerts No Known Allergies [...]
--- OUTSIDE RECORDS SUMMARY | 2023-11-21 01:25 | XMS_ITS | Continuity of Care Document ---
Author Organization [facility] Address [address] [address]- Care Team Providers Care Employee Wellness/Fitness Coordinator Name Role Phone Kathy RUSH, Hector Greenberg Primary Care Physician [facility] Date(s): 02/18/22 - 03/20/[facility] [address] [address]- Allergies, Adverse Reactions, Alerts No Known Allergies [...] 11/18/21 15:52:00 EDT, Route to Pharmacy Electronically, [facility]/pharmacy #[id number], Partial fill upon patient request if the prescriptio... Start Date: 11/18/21 Status: Ordered PNV oral tablet 1 tablet, By Mouth, Daily, 0 Refills, Maintenance, 11/29/18 13:11:44 EDT Start Date: 11/29/18 Status: Ordered Unisom 25 mg oral tablet 1 tablet = 25 mg, By Mouth, Daily at bedtime, # 30 tablet, 0 Refills, Maintenance, 11/26/21 15:43:00 EDT, [facility]/pharmacy #[id number], Partial fill upon patient request if the prescription is for a schedule II opioid drug. Start Date: 11/26/21 Status: Ordered Vitamin B6 25 mg oral tablet 1 tablet = 25 mg, By Mouth, Daily, # 100 tablet, 0 Refills, Maintenance, 11/26/21 15:43:00 EDT, [facility]/pharmacy #[id number], Partial fill upon patient request [...] Name: Kathy RUSH , Hector Greenberg Address: [address] [place] [address]
--- OUTSIDE RECORDS SUMMARY | 2023-11-21 01:25 | XMS_ITS | Continuity of Care Document ---
Author Organization [facility] ter Address [address] [place] [id number]- Care Team Providers Care State Historical Society Director Name Role Phone Kathy RUSH, Hector Greenberg Primary Care Physician [facility]counter [facility] Date(s): 06/21/22 - 06/24/[address] [address] Discharge Disposition: A-D/C Home Attending Physician: Ashley Rowland DO Admitting Physician: Ashley Rowland DO Referring Physician: Ashley Rowland DO Allergies, Adverse Reactions, Alerts No Known Allergies [...] give 325mg per patient preference and re-dose [id number] within 4 hours, if needed. Patient should only receive a total of 650mg of Acetaminophen every 4 hours., Refills 0, Maintenance, Pain , Mild, 1... Start Date: 06/24/22 Status: Ordered Acetaminophen Tablet 650 mg, Tablet, By Mouth, Every 4 hours, PRN for Pain , Mild, (1-3), may give 325mg per patient preference and re-dose with 325mg within 4 hours, if needed. Patient should only receive a total of 650mg of Acetaminophen every 4 hours., Routine, 06/22... Start Date: 06/22/22 Stop Date: 06/24/22 Status: Discontinued Colace sodium 100 mg oral capsule 100 mg, 1, capsule, By Mouth, 2 times a day, PRN, # 60 capsule, Refills 2, Tot. Refills 2, Maintenance, for constipation, 11/18/21 15:52:00 EDT, Route to Pharmacy Electronically, [facility]/pharmacy #[id number], Partial fill upon patient request if the prescriptio... Start Date: 11/18/21 Status: Ordered ibuprofen 800 mg oral tablet 800 mg, 1, tablet, By Mouth, Every 8 hours, PRN, 800mg of Ibuprofen every 8 hours., # 30 tablet, Refills 0, Tot. Refills 0, Maintenance, Pain , Moderate, 06/24/22 10:40:00 EST, Route to Pharmacy Electronically, [facility]/pharmacy #[id number], Partial fill upon pa... Start Date: 06/24/22 Status: Ordered Ibuprofen Tablet 800 mg, Tablet, By Mouth, Every 8 hours, PRN for Pain , Moderate, (4-6), may give 400mg per patientpreference and re-dose with 400mg within 8 hours if needed. Patient should only receive a total of 800mg of Ibuprofen every 8 hours., Routine, ... Start Date: 06/22/22 Stop Date: 06/24/22 Status: Discontinued PNV oral tablet 1 tablet, By Mouth, Daily, 0 Refills, Maintenance, 11/29/18 13:11:44 EDT Start Date: 11/29/18 Status: Ordered Unisom 25 mg oral tablet 1 tablet = 25 mg, By Mouth, Daily at bedtime, # 30 tablet, 0 Refills, Maintenance, 11/26/21 15:43:00 EDT, [facility]/pharmacy #[id number], Partial fill upon patient request if the prescription is for a schedule II opioid drug. Start Date: 11/26/21 Status: Ordered Vitamin B6 25 mg oral tablet 1 tablet = 25 mg, By Mouth, Daily, # 100 tablet, 0 Refills, Maintenance, 11/26/21 15:43:00 EDT, [facility]/pharmacy #[id number], Partial fill upon patient request [...] crying overthinking 3Not taking medication for IBS Vital Signs Most recent to oldest [Reference Range]: 1 2 3 4 Height 165.1 cm (06/24/22 7:59 AM) 165.1 cm (06/23/22 11:52 PM) 165.1 cm (06/23/22 3:18 PM) Weight 75.63 kg (06/21/22 6:12 PM) 75.63 kg (06/21/22 4:46 PM) Oxygen Saturation [94-100 %] 97 % (06/24/22 7:59 AM) 97 % (06/23/22 11:52 PM) 100 % (06/23/22 3:18 PM) Pulse Rate [55-90 bpm] 65 bpm (06/24/22 7:59 AM) 73 bpm (06/23/22 11:52 PM) 72 bpm (06/23/22 3:18 PM) Body Mass Index [18.5-24.99 kg/m2] 27.75 kg/m2 *H* (06/21/22 4:46 PM) Blood Pressure [90-138/55-84 mm Hg] 128/76mm Hg (06/24/22 7:59 AM) 119/73mm Hg (06/23/22 11:52 PM) 115/55mm Hg (06/23/22 3:18 PM) Respiratory Rate [16-30 br/min] 18 br/min (06/24/22 11:09 AM) 18 br/min (06/24/22 7:59 AM) 18 br/min (06/24/22 6:53 AM) 18 br/min (06/24/22 6:53 AM) Temperature [96.8-100.4 DegF] 98.0 DegF (06/24/22 7:59 AM) 98.1 DegF (06/23/22 11:52 PM) 98.2 DegF (06/23/22 3:18 PM) Mode of Delivery (Oxygen) Room air (06/24/22 7:59 AM) Room air (06/23/22 11:52 PM) Room air (06/23/22 3:18 PM) Blood pressure sites Arm, right (06/24/22 7:59 AM) Arm, right (06/23/22 11:52 PM) Arm, left (06/23/22 3:18 PM) Temperature Route Oral (06/24/22 7:59 AM) Oral (06/23/22 11:52 PM) Oral (06/23/22 3:18 PM) Dry Weight 75.63 kg (06/21/22 4:46 PM) Weight Obtained Via Standing scale (06/21/22 6:12 PM) Social History Social History Type Response Smoking Status Former smoker, quit more than 30 days ago entered on: 12/08/21 Sex History and physical note * Elliot VASQUEZ, Paty: PERFORM Event Display: History and Physical Hospital Authored Date: [id number] Patient: ??ROSSY JAMES ? Age:??22 Years?Sex:??Female?:??2000?? OB Reason for Admission OB Reason for Admission?? No qualifying data available. LMP/EGA/CARLO Gestational Age (EGA) and CARLO? * Note: EGA calculated as of 06/21/2022 ?? CARLO:??07/12/2022?EGA*:??37 weeks ? History?(1,0,2,1)?Method:??Last Menstrual Period??(10/05/2021) History of Present Illness No ctractions.?? Feeling comfortable.?? No complaints.?? + FOM no leading of fluid.?? Review of Systems Constitutional: ??No fever, chills HEENT:??No visual loss, blurred vision, double vision or yellow sclera. No hearing loss. ??No sneezing, congestion, runny nose or sore throat. Skin:??No rash or itching. Cardiovascular:??No chest pain, chest pressure or chest discomfort. No palpitations?? Respiratory:??No shortness of breath, cough or sputum production. Gastrointestinal:??No anorexia, nausea, vomiting or diarrhea. No abdominal pain or blood in stool. Genitourinary:??No dysuria, change in frequency or urgency.?? Neurologic:??No headache, dizziness, syncope Musculoskeletal:??No muscle pain, back pain, joint pain or stiffness. Hematologic:??No bleeding or bruising. Lymphatics:??No enlarged lymph nodes. Psychiatric:??No depression or anxiety. Endocrine:??No reports of sweating. No cold or heat intolerance. No polyuria or polydipsia. ?? AP summary: ??onset care first trimester BMI:?? normal Total wt gain:??32 VE in office:??none Physical Exam Vitals & Measurements T:??99?F ?? HR:??79(Monitored)?? ID:??99?? RR:??18?? BP:??136/80?? SpO2:??99%?? HT:??165.1??cm?? WT:??75.63??kg?? BMI:??27.75?General: ? General Assessment: ??Alert, Orientated x3 , Coping well, no acute distress?Cardiovascular: ??Within normal limits. ? Cardiovascular Assessment: Heart Rhythm ( Regular ). ?Respiratory: ? Respiratory pattern: Regular. ? Breath Sounds All Lobes: No Crackles/rales, No Wheezing, expiratory, No Wheezing, inspiratory. ?Abdomen/GI: ? Abdomen Description: non tender, no hepatosplenomegaly ?Gravid uterus, soft, non tender. FHT:?? Cat I ?Musculoskeletal: ??Within normal limits. ?Extremities: ? Extremities: no??edema of LE, no periorbitoal edema?Integumentary: ??Within normal limits. ? Skin Color: Normal for ethnicity, [place]. ? Skin Description: Dry. ? Skin Temperature: Warm. ?? OB Assessment Baby A Baseline:135 Baseline Description:Normal, 110-160 bpm Baseline Variability:Moderate variability Accelerations:Present Deceleration:None Activity:Present Uterine Monitor Mode, UterineExternal Assessment/Plan History of depression (Z87.59):??x 6 month, meds not effective.??Health Families referral helped. ?? Intrauterine growth restriction (IUGR) affecting care of mother, third trimester, single gestation (O36.1376):??admission for IOL.??Miso and miranda Explained rationale for IOL, process of IOL: miso + miranda. GBS not on chart.??Repeat sent ?? OB History History?(1,0,2,1)? # 1 ?Baby 1 ?Outcome Date:??12/21/2017?Outcome or Result:??Spontaneous ?Gest Age:??11 weeks ? Outcome:? Sex:??-- ?Maternal Complications:??Substance abuse ?Hospital:??[facility] ?Comment:??Miso used ?? # 2 ?Baby 1 ?Outcome Date:??05/13/2019?Outcome or Result:??Vaginal ?Gest Age:??Fullterm ? Outcome:??Live ? Sex:??Female ?? # 3 ?Baby 1 ?Outcome Date:??07/19/2019?Outcome or Result:??Therapeutic , medical ?Gest Age:??-- ? Outcome:? Sex:??-- Labs Labs Labs & Tests ABO: O (12/29/21) Antibody Screen: Negative (06/21/22) Blood Type: O Positive (06/21/22) Chlamydia Trachomatis Amplified Probe: NEGATIVE (11/18/21) Down Syndrome Age Risk FTS: Age Risk: (12/29/21) Down Syndrome Scrn Risk FTS: Screening Risk: (12/29/21) Glucose 50 Gm, +60 Minutes: 112 mg/dL (06/01/22) Hct:??35.4 %??Low (06/21/22) Hepatitis B Surface Antigen: NEGATIVE (12/29/21) Hepatitis C Ab: NEGATIVE (12/29/21) Hgb:??11.2 Gm/dL??Low (06/21/22) HIV 4th Generation Ab-Ag Result: NEGATIVE (12/29/21) RH Test Only: Positive (12/29/21) RPR Titer Result: NOT INDICATED (06/01/22) Rubella IgG Ab: POSITIVE (12/29/21) Syphilis Screen by JAJA: NEGATIVE (06/01/22) Trisomy 18 Scrn Risk FTS: Screening Risk: (12/29/21) Urine Culture: Urine Culture (12/29/21) Problem List Active Active Problem List Anxiety: (Medical) admits to heart racing and always crying overthinking Patient reports anxiety is no longer a problem and that it was mostly due to having her daughter at ?? a young age Back pain with sciatica: (Medical) BMI 20.0-20.9, adult: (Medical) COVID-19: (Medical) History of marijuana use: (Medical) History of depression: (Medical) IBS (irritable bowel syndrome): (Medical) Not taking medication for IBS Intrauterine growth restriction (IUGR) affecting care of mother, third trimester, single gestation:(Medical) Maternal care for restricted growth, antepartum: (Medical) : (Obstetric) (10/05/21) : (Medical) Procedure/Surgical History D&C - Dilatation and curettage: 2020 Home Medications Docusate: 100 mg = 1 capsule, By Mouth, 2 times a day, PRN (for constipation) Doxylamine: 25 mg = 1 tablet, By Mouth, Daily at bedtime Multivitamin, : 1 tablet, By Mouth, Daily Pyridoxine: 25 mg = 1 tablet, By Mouth, Daily Allergies NKA Social History Alcohol Use: Never., 12/08/2021 Use: Past. Frequency: 1-2 times per year. Type: Wine. Alcohol use in household: No., 09/30/2018 Use: Past. Other: Socially- last intake week prior to positive test., 11/30/2017 Electronic Cigarette/Vaping Electronic Cigarette Use: Former use, quit more than 90 days ago. Type: Nicotine infused., 12/08/2021 Employment/School Status: Employed. Other: [employer] 12/08/2021 Status: Employed, Student. Other: [employer]. Work at [employer] and as [employer]Tanesha works service dispatcher at [employer].., 09/30/2018 Exercise Self assessment: Fair condition., 12/08/2021 Self assessment: Excellent condition., 09/30/2018 Home/Environment Living situation: Home/Independent. Lives with: Significant other., 12/08/2021 Living situation: Home/Independent. Lives with: Significant other. DCF involvement: Past. Other: Inthe past with pt. and her mom. Currently live with Boyfriend Tanesha.., 09/30/2018 Living situation: Home/Independent. Lives with: Boyfriend., 11/30/2017 Nutrition/Health Diet: Regular., 12/08/2021 Diet: Regular., 09/30/2018 Diet: Regular., 11/30/2017 Sexual Sexually involved in last 6 months: Yes. Gender identity: Identifies as female. Self described orientation: Straight or heterosexual. Preferred pronoun: She/her., 12/08/2021 Sexually involved in last 6 months: Yes. Gender identity: Identifies as female. Self described orientation: Straight or heterosexual. Preferred pronoun: She/her., 09/30/2018 Substance Abuse Use: Past. Type: Marijuana., 12/08/2021 Use: Past. Type: Marijuana. Substance abuse in household: Yes. Other: Boyfriend heavy user now inside the house.., 09/30/2018 Use: Past. Type: Marijuana. Other: Daily marijuana use. Once following positive test., 11/30/2017 Use: Past. Type: Marijuana., 11/02/2017 Tobacco Use: Former smoker, quit more than 30 days ago., 12/08/2021 Use: Former smoker, quit more than 30 days ago. Tobacco user in household: No., 09/30/2018 Former smoker, Other: Once weekly prior to ., 11/30/2017 Never smoker, 11/02/2017 Family History Mother: Apnea Pat. Grandmother: Apnea; Diabetes mellitus; Diabetes mellitus; Lung disease Mat. Grandmother: Apnea Plan No Data Found Hospital Progress note * Salazar Ramos: SIGN, MODIFY, PERFORM, SIGN, VERIFY Event Display: Progress Note Hospital Authored Date: [id number] Patient: ROSSY JAEMS Age: 22 years Sex: Female : 2000 Associated Diagnoses: None Author: Salazar Ramos Findings Problem Related to Alteration in Comfort : Alteration in Comfort/new 06/24/2022 9:00 EST Alteration in Comfort Related to Other: Vaginal delivery Goals & Outcomes: Comfort Pt will report acceptable level of comfort & pain control, Pt will state importance of adhering to pain strategy regime, Pt will demonstrate necessary skills to manage pain Interventions Implemented: Comfort Assess pain using appropriate pain scale/tools, Assess aggravating factors & prevent them accordingly, Assess alleviating factors & promote them accordingly BH Goals/Interventions, Comfort Yes Comfort, Problem Start 06/22/2022 14:00 Reviewed plan with, Comfort Patient Patient Progression, Comfort Pt progressing according to plan Comfort, Problem Ongoing Yes . Pt is 2 days s/p vaginal delivery. VSS. Fundus is firm -1. Vaginal flow is mild. No large clots noted. Pt is up and voiding/passing gas. Pt is medicated prn with tylenol/motrin for cramping/perineum pain. Bonding well with . Pending discharge today. Will cont to monitor. * Salazar Ramos: PERFORM Event Display: Progress Note Hospital Authored Date: Pt discharged home. Went over pt discharge paperwork, follow ups, medications, PPWS/911. Checked infant in carbed. Discharged home. * Rubio BECKMAN, Roselyn S.: PERFORM, SIGN, VERIFY Event Display: Progress Note Hospital Authored Date: Patient: ROSSY JAMES Age: 22 years Sex: Female : 2000 Associated Diagnoses: None Author: Roselyn eBrgeron RN Findings pt ob stable, abd soft, fundus firm and -1, mild vag bleeding noted. pt reports +voiding without difficulty. pt reports adequate pain relief taking tylenol and ibuprofen. will cont to assess. Problem Related to Alteration in Comfort : Alteration in Comfort/new 06/23/2022 22:00 EST Alteration in Comfort Related to Other: Vaginal delivery Goals & Outcomes: Comfort Pt will report acceptable level of comfort & pain control, Pt will state importance of adhering to pain strategy regime, Pt will demonstrate necessary skills to manage pain Interventions Implemented: Comfort Assess pain using appropriate pain scale/tools, Assess aggravating factors & prevent them accordingly, Assess alleviating factors & promote them accordingly BH Goals/Interventions, Comfort Yes Comfort, Problem Start 06/22/2022 14:00 Reviewed plan with, Comfort Patient Patient Progression, Comfort Plan Initiation Comfort, Problem Ongoing Yes . * Jackie Ro RN: PERFORM, SIGN, VERIFY Event Display: Progress Note Hospital Authored Date: Patient: ROSSY JAMES Age: 22 years Sex: Female : 2000 Associated Diagnoses: None Author: Jackie Ro RN Findings Problem Related to Alteration in Comfort : Alteration in Comfort/new 06/23/2022 8:00 EST Alteration in Comfort Related to Other: Vaginal delivery Goals & Outcomes: Comfort Pt will report acceptable level of comfort & pain control, Pt will state importance of adhering to pain strategy regime, Pt will demonstrate necessary skills to manage pain Interventions Implemented: Comfort Assess pain using appropriate pain scale/tools, Assess aggravating factors & prevent them accordingly, Assess alleviating factors & promote them accordingly BH Goals/Interventions, Comfort Yes Comfort, Problem Start 06/22/2022 14:00 Reviewed plan with, Comfort Patient Patient Progression, Comfort Pt progressing according to plan Comfort, Problem Ongoing Yes . Pt doing well, VSS. Alert and oriented x3. OOB ad mariah. Pain controlled with Tylenol/Motrin. Pt voiding and flatus. Lung sounds clear bilaterally. Abdomen soft and non-distended. Uterus firm and belowumbilicus. Light amount of lochia, denies passing any clots or saturating a pad in an hour. Bowel sounds present. and formula feeding . FOB at bedside. Call sinclair within reach. Will continue to monitor. Note * Salazar Ramos: PERFORM Event Display: Discharge/Transfer Note Hospital Authored Date: [id number] Nursing Discharge Note Entered On: 06/24/2022 13:41 EST Performed On: 06/24/2022 13:00 EST by Salazar Ramos Nursing Discharge Note 2 Discharge Time : 06/24/2022 13:00 EST Discharge Level of Care at Discharge : Home/Halfway/Foster Care Patient Left Unit Via : Ambulatory Patient Accompanied Off Unit with : Significant other DC Instructions Provided & Signed by Pt : Yes Patient Understands D/C Instructions : Yes Verbalized Understanding of D/C Plan By : Patient Patient Instructions Discharge Signed : Yes Did Pt have Specialty Bed or Wound Vac : No Salazar Ramos - 06/24/2022 13:41 EST * Shamir VASQUEZ, Jaida Cortez: PERFORM Event Display: Discharge/Transfer Note Hospital Authored Date: [id number] Patient: ??ROSSY JAMES ? Age:??22 Years?Sex:??Female?:??2000?? Admit Date Admission Date: 06/21/2022 Discharge Date 06/23/22 OB Reason for Admission OB Reason for Admission Reason for admission: Induction of labor Reason for Induction: IUGR [facility] Course Admitted 06/21 for IOL due to growth restriction in utero. She progressed through the induction without complication delivering a baby girl on 06/22. course has also been uncomplicated. She is eager to get baby home. She is feeling well no concerns or complaints. She is planning a nexplanon at her 6wk pp follow up. Currently bottle feeding formula, may try to pump and or place onbreast once at home uncertain at this time. Objective/Physical Exam on Day of Discharge Vitals & Measurements T:??98.0?F ?? HR:??65(Monitored)?? ID:??65?? RR:??18?? BP:??128/76?? SpO2:??97%?? HT:??165.1??cm?? WT:??2.045??kg?? BMI:??27.75?? General: Awake, alert HEENT: Within normal limits Breast: Not engorged, nipples intact and everted Abdomen: Fundus is firm @??2 below??umbilicus?? Perineum: intact, no erythema, no edema Ext: No edema of bilateral lower ext. ?? Assessment/Plan/Discharge Diagnosis state (Z39.2):?? Provided education regarding: bleeding pattern Breast changes Breast feeding - timing/frequency, latch, positioning, & pumping - also if she is going to continue with formula feeding discuss breast care in the initial phase care in the first month Car seat and sleep safety Warning signs and symptoms to report - heavy bleeding, difficulty urinating, SOB, chest pain, headache that doesn't go aware with Motrin/Tylenol, redness/pain in any large muscle like calf, thigh, buttock etc. Follow up in office in 2wks and 6wks Discharge to home today with Future Appointments Wednesday 10:30 AM EST ?? Where: [facility] [employer] [facility] [address] [place] [address]- Wednesday 12:30 PM EST ?? Where: [facility] [facility] [facility] [address] [place] [address]- Delivery Summary Delivery Summary Maternal Information ??Labor Information ?Labor Onset, Date/Time: ??06/22/22 06:00:00 ?Baby A ?Labor Onset Methods: ??Induced ?Induction Methods: ??Misoprostol ??Delivery Information ?Gestational Age at Delivery: ??37W 1D ?Anesthesia OB: ??Epidural ??06/22/22 12:47:36, Epidural ??06/22/22 09:13:50 ?Obstetrical Laceration: ??Perineum intact ?Delivery Complications: ??None ?Blood Loss(ml): ??400 mL ? Baby A ??Delivery Information ?Delivery Type: ??Vaginal ?Date, Time of : ??06/22/22 09:16:00 ? Position: ??Supine ?Foot of bed removed: ??No ?Delayed Cord Clamping: ??Yes ?Placenta Delivery Date/Time: ??06/22/22 09:25:00 ?Placenta Delivery Method: ??Spontaneous ?Placenta Appearance: ??Normal ?Placenta to Pathology: ??Yes ??Care Team ?Attending Provider: ??Logna VASQUEZ, Krysta Greenberg ?Delivery CNM: ??Logan CROWM, Krysta rGeenberg ?route process administrator #1: ??Bria BECKMAN, Dana ?route process administrator #2: ??Lev BECKMAN, Dasha ?Mud Mixer Helper: ??Yefri Ruelas DO ?Anesthesiology Attending: ??Karoline Osei DO ?Time NICU Team Called: ??06/22/22 09:21:00 ??Labor Information ?ROM Date, Time: ??06/22/22 06:37:00 ?ROM to Delivery Total Time: ??159 min ?3rd Stage, Length of Labor: ??9 min ? monitoring: ??External monitor ?? Information ? Outcome: ??Live ? Position: ??Occiput anterior ? Weight: ??2.045 kg ? Score 1 minute: ??8 (Modified) ? Score 5 minute: ??8 ? Score 10 minute: ??8 ?Transferred To: ?? Care area with Family ?Umbilical Cord Description: ??3 vessel cord ? Complications: ??None ?Gender: ??Female ? Discharge Medications ???Acetaminophen (acetaminophen 325 mg oral tablet)???Docusate (Colace sodium 100 mg oral capsule)???Doxylamine (Unisom 25 mg oral tablet)???Ibuprofen (ibuprofen 800 mg oral tablet)???Multivitamin, (PNV oral tablet)???Pyridoxine (Vitamin B6 25 mg oral tablet) Immunizations during Hospitalization Vaccine Date Status Commentstetanus/diphtheria/pertussis, acel(Tdap) 04/29/2022 Recorded Right arm Measles/Mumps/Rubella Virus Vaccine 05/14/2019 Recorded tetanus/diphtheria/pertussis, acel(Tdap) 02/23/2019 Recorded Measles/Mumps/Rubella Virus Vaccine 02/01/2017 Recorded influenza virus vaccine, inactivated 05/20/2015 Recorded Meningococcal Conjugate Vaccine 05/16/2014 Recorded influenza virus vaccine, inactivated 05/16/2014 Recorded influenza virus vaccine, inactivated 03/29/2013 Recorded Meningococcal Conjugate Vaccine 09/23/2010 Recorded hepatitis B pediatric vaccine 09/23/2010 Recorded hepatitis B pediatric vaccine 08/11/2010 Recorded influenza virus vaccine, inactivated 05/12/2010 Recorded Human Papillomavirus Vaccine 05/12/2010 Recorded tetanus/diphtheria/pertussis, acel(Tdap) 05/12/2010 Recorded Human Papillomavirus Vaccine 04/01/2009 Recorded Human Papillomavirus Vaccine 01/22/2009 Recorded Hepatitis A Pediatric Vaccine 01/22/2009 Recorded Varicella Virus Vaccine 01/18/2008 Recorded Hepatitis A Pediatric Vaccine 01/18/2008 Recorded Poliovirus Vaccine, Inactivated 02/06/2002 Recorded Measles/Mumps/Rubella Virus Vaccine 02/06/2002 Recorded diphtheria/tetanus/pertussis, acel(DTaP) 02/06/2002 Recorded diphtheria/tetanus/pertussis, acel(DTaP) 07/15/1999 Recorded Varicella Virus Vaccine 03/17/1999 Recorded Measles/Mumps/Rubella Virus Vaccine 03/17/1999 Recorded hepatitis B pediatric vaccine 2000 Recorded diphtheria/tetanus/pertussis, acel(DTaP) 1998 Recorded diphtheria/tetanus/pertussis, acel(DTaP) 1998 Recorded Poliovirus Vaccine, Inactivated 1998 Recorded Poliovirus Vaccine, Inactivated 1998 Recorded hepatitis B pediatric vaccine 2000 Recorded diphtheria/tetanus/pertussis, acel(DTaP) 1998 Recorded hepatitis B pediatric vaccine 1998 Recorded Infant Feeding Method [place] Feeding Method: (06/22/22 10:20:00) * Salazar Ramos: PERFORM Event Display: Patient Education/Instruction Authored Date: [id number] Inpatient Adult Discharge Instructions [address] [address] Name: ROSSY JAMES : 2000 Visit: 06/21/2022 16:16:00 Current Date: 06/24/2022 11:47 Account: [id number] Inpatient Adult Discharge Instructions We would like to thank you for allowing us to assist you with your healthcare needs. The following includes patient education materials and information regarding your injury/illness. Our entire staffstrives to provide an excellent experience for our patients and their families. PLEASE ENSURE YOU FOLLOW-UP PER THE INSTRUCTIONS BELOW! ?? YOUR OPINION IS IMPORTANT TO US! Please complete the survey you may receive by mail or email. Your feedback will be used to make improvements to the healthcare experiences of our patients and their families. Surveys are administered by [employer] ?? If further treatment with your primary care physician or another doctor is recommended, it is important for you to keep the appointment. Call your primary care physician or return to the Emergency Department immediately if your condition worsens, fails to improve, or new symptoms develop. If you need to find a doctor, you can call [facility] for a referral at [phone] or toll free at [phone] or log in to [email or web address] ?? You can view and manage your care through the patient portal or by using a health care lisa of your choosing. [employer] is a website that allows you to securely view your medical information including your hospital discharge summary, office visit summaries, medications and follow-up visits. You can also request appointments, renew medications, and request access to your medical information using a health care lisa of your choosing, or just ask a question. You can enroll at [email or web address] or register during your next office visit. You have been discharged from [facility], Patient Care Unit: [facility]. If you have any questions regarding these instructions after you leave, please call us and we will be happy to assist you. [facility] Your Care Team Attending Physician Ashley Rowland DO Consulting Providers Krysta Ford CNM Discharging Providers Shamir VASQUEZ, Jaida Cortez Reason for Admission Induction of labor Your Diagnosis History of depression IBS (irritable bowel syndrome) state Tests Performed Below is a partial list of the tests performed during your hospitalization. You may have had other tests and procedures not included in this list. Please discuss all test results with your provider. CBC COVID-19 (2019 Novel Coronavirus) PCR?-- Results Pending -- Group B Strep by PCR Type and Screen ? You will be contacted within 72 hours with your results. Primary Care Provider Kathy RUSH , Hector Greenberg Advance Directive Health Care Proxy on File No No qualifying data available. Discharge Vitals Temperature: 98 DegF Height: 165.1 cm Pulse Rate: 65 bpm Weight: 75.63 kg Respiratory Rate: 18 br/min Body Mass Index:??27.75 kg/m2??High Systolic Blood Pressure: 128 mm Hg Body surface area: 1.86 Diastolic Blood Pressure: 76 mm Hg ?? Oxygen Saturation: 97 % ?? Studies Pending All tests and labs ordered during this hospital stay have been completed unless listed below. Please discuss all pending results with your provider listed above in these instructions. ?? COVID-19 (2019 Novel Coronavirus) PCR Pathology Tissue Request () What to do next Instructions From Your Doctor Discharge Orders Scheduled Follow-Up Appointments Wednesday 10:30 AM EST ?? Where: [facility] [employer] [facility] [address] [place] [address]- Wednesday 12:30 PM EST ?? Where: [facility] [facility] [facility] [address] [place] [address]- You Need to Schedule the Following Appointments Follow Up with??Krysta Ford CNM When??Within 4 to 5 weeks Why: 6 week PP follow up Where: [address] [place], [place] [address] [place] [address]- Follow Up with??Krysta Ford CNM When??Within Within two weeks Why: 2 week PP follow up Where: [address] [place], [place] [address] [place] [address]- Discharge Medications ROSSY JAMES :2000 Visit Date:06/21/2022 Medications: Please continue your medications until treatment is completed or stopped by your provider. Medications not listed below should be discontinued. Discuss any questions related to medications with your provider. What How Much When Instructions Next Dose New Acetaminophen (acetaminophen 325 mg oral tablet) 650 Milligram Oral Every 4 hours as needed for Pain , Mild (1-3), may give 325mg per patient preference and re-dose with 325mg within 4 hours, if needed. ?? Patient should only receive a total of 650mg of Acetaminophen every 4 hours. ?? 2PM New Ibuprofen (ibuprofen 800 mg oral tablet) 1 tab(s) Oral Every 8 hours as needed for Pain , Moderate 800mg of Ibuprofen every 8 hours. ?? Pickup at [facility]/pharmacy #[id number] 2PM Unchanged Docusate (Colace sodium 100 mg oral capsule) 1 capsule Oral Twice a day as needed for for constipation tonight Unchanged Doxylamine (Unisom 25 mg oral tablet) 1 tab(s) Oral Daily at Bedtime Unchanged Multivitamin, (PNV oral tablet) 1 tab(s) Oral Daily anytime Unchanged Pyridoxine (Vitamin B6 25 mg oral tablet) 1 tab(s) Oral Daily Pharmacy Information [facility]/pharmacy #[id number]: [address] [place] [address] [phone] Test Results Below is a partial list of the most recent Laboratory test results done prior to this discharge. You may have had other tests and procedures not included in this list. Please discuss all test resultswith your provider. CBC (06/21/2022) ???WBC - 11.6 k/mm3???RBC - 4.24 m/mm3???Hgb - 11.2 Gm/dL???Hct - 35.4 %???MCV - 83.5 femtoliters???MCH - 26.4 pg???MCHC - 31.6 g/dL???Platelet Count - 188 k/mm3???RDW-SD - 40.3 femtoliters???MPV - 13.7 femtoliters???Nucleated RBC (Automated) - 0.0 #/100 WBC'S???Abs. NRBC - 0.0 k/mm3 Group B Strep by PCR (06/21/2022) ???GBS PCR Result - POSITIVE Type and Screen (06/21/2022) ???Blood Type - O Positive???Antibody Screen - Negative Allergies (NKA means No Known Allergies) NKA Problems Active Problems??(9) Anxiety?? Back pain with sciatica?? BMI 20.0-20.9, adult?? COVID-19?? History of marijuana use?? History of depression?? IBS (irritable bowel syndrome)? Education Materials Below is the list of Educational Leaflet Providered with your Discharge Instructions. [facility]- Discharge Instructions?? Valuables and Belongings I fully understand and agree that [facility] accepts no responsibility for all my personal property including clothing, toilet articles, radios, jewelry, dentures, hearing aids, rings, money, or any other property that is in my possession or is brought to me after admission. I understand certain valuables may be placed in a hospital safe for a short period of time. I understand that the hospital is not liable for loss or damage due to accident, fire, or other natural occurrence while said property is in the safe. I accept full responsibility for any personal property that I keep with me, and will not hold the hospital responsible in case of loss or disappearance. I acknowledge that i have been encouraged to send valuables and belongings home. ?? Review of Valuable and Belonging List: With patient Disposition of Belongings: Other: In Pt room Date for Pt to Sign Valuables/Belongings: 06/21/22 17:06:00 ?? Other Discharge Information ? Pulmonary Rehab Status?? Pulmonary Rehab Discharge Status?? Respiratory Rate: 18 br/min ? Common Emergency Awareness Tips IS IT A STROKE? Act FAST and Check for these signs: FACE Does the face look uneven? ARM Does one arm drift down? SPEECH Does their speech sound strange? TIME Call at any sign of stroke ?? Heart Attack Signs Chest discomfort: Most heart attacks involve discomfort in the center of the chest and lasts more than a few minutes, or goes away and comes back. It can feel like uncomfortable pressure, squeezing, fullness or pain. Discomfort in upper body: Symptoms can include pain or discomfort in one or both arms, back, neck, jaw or stomach. Shortness of breath: With or without discomfort. Other signs: Breaking out in a cold sweat, nausea, or lightheaded. Remember, MINUTES DO MATTER. If you experience any of these heart attack warning signs, call to get immediate medical attention! ?? Smoking can increase your chances of developing chronic health problems and can cause harmful effects to other family members in your house. If you smoke, you are strongly encouraged to quit. Please call [facility] [email or web address]com Link at [phone] or [phone] ([phone]) or log in to [email or web address] for referrals to smoking cessation programs. ?? The National Suicide Prevention Hotline is available 25/01 if you or someone you know needs to find a reason to keep living. By calling 1-656-041-[employer] (8924) you'll be connected to a skilled, trained counselor at a crisis center in your area. INPATIENT DISCHARGE INSTRUCTIONS SIGNATURE PAGE ERIKA ROSSY Location:[facility] Registration Date and Time:06/21/2022 16:16 RUST Primary Care Physician: Kathy RUSH , [facility], I ROSSY JAMES, have received the above patient education materials/instructions and have verbalized understanding. If ambulance or transport services are being used I further acknowledge being given a choice of service. ?? If you need to contact me, please call me at this number: . Patient/Washer And Crusher Tender Name: Patient/Washer And Crusher Tender Signature: Relationship to Patient: Witness Name/Signature: Date: * Salazar Ramos: PERFORM Event Display: Patient Education Leaflets Authored Date: [id number] OB [facility]- Discharge Instructions ?? 209 Discharge Care Instructions for the New Mom and Baby Please take a few moments to read through these helpful instructions before you leave the hospital.?? Your nurse will be glad to answer any questions you may have.?? You can also find this and more information throughout the purple Becoming a Family booklet, [facility]???s New Beginnings Guide and the Consultation Services Guide given to you after the of your baby.?? You may also phone our nurses stations if you have further questions.?? [facility]:?? First Floor ([phone]), Second Floor ([phone]).?? Please call your provider if you have any questions or concerns?? before your next appointment. For ongoing support please ???Like?? us on our Facebook page ???[facility]???s New Beginnings?? andsign up for our email newsletter at [email or web address].?? News and information will besent to you until your baby???s third birthday. Instructions for the New Mother Activity: For the next 2 weeks at home ??? no heavy lifting, avoid unnecessary stair climbing, and no driving(especially if you are taking medicine that may make you sleepy or feel that you are sleep deprived).?? For the next 4-6 weeks - no tampons, no douches, no sexual intercourse. Use your frandy bottle to rinse your perineum until your vaginal flow stops.?? If you have stitches in your bottom, they generally dissolve within 7-10 days.?? Apply Tucks/witch leigha pads until your soreness subsides.?? Use your bathroom at home every 3 to 4 hours, rinse, and change your pads. Warm showers feel great on achy muscles, sore backs and sore bottoms. Exercise: Walking is the best form of exercise.?? Wait until your follow up appointment with your provider in4-6 weeks before engaging in more strenuous activity. Diet: Drink plenty of fluids to avoid constipation and to help support your recovery. Eat plenty of iron rich foods such as red meat, iron fortified cereals like Total and Cream of Wheat, raisins, prunes, greens and spinach.?? These will help to build your blood count back up as all women lose some blood after delivery.?? Also add foods rich in Vitamin C such as strawberries, oranges, papayas, kale and sinclair peppers. Continue to take your vitamins if you are .?? If you are not follow the instructions of your provider.?? If you were prescribed iron supplements such as ferrous sulfate, it is important to continue these until your doctor or performing artist tells you to stop. Breast Care for Nursing Mothers: Wear a comfortable fitting, supportive nursing bra.?? An underwire bra is not recommended. Express drops of breast milk and rub over your nipples and areola (brown area) before and after each feeding to protect and heal sensitive skin and then air dry your nipples.?? If you are experiencing any soreness, you may purchase nipple cream such as TenderCare or Lansinoh.?? Use it in the following manner:?? finish your feeding or pumping session, self-express colostrum onto your nipple and air dry, apply the nipple cream to the nipple and areola.?? Use only small amounts for best results. If you are having difficulty getting the baby to latch onto the breast due to swelling of the areola, try applying pressure with your fingers for a couple of minutes above and below your nipple and walk your fingers outward softening the area and pushing the swelling away.?? This technique is knownas reverse pressure softening.?? For demonstrations of this and other techniques such as the Crocker Hand Expression technique, please refer to the resources section of the Consultation Services Guide that you received from services. When your milk first comes in, usually within 3 to 5 days after delivery, you may experience engorgement.?? Your breasts may become swollen and very tender.?? Cold compresses work great to help with discomfort and reduce swelling. It will get better in a couple of days.?? Continue to nurse your baby frequently.?? Call [facility]???s Consultation Service at [phone], press 1 to schedule an outpatient appointment or press 3 and a at&t retailer sales consultant will return your call that day or the next if you call after 3pm. Breast Care for Bottle Feeding Mothers: Engorgement may occur within the first week after delivery.?? Your breasts may become hard and verytender.?? A cool compress of cleaned raw green cabbage leaves applied to the breast and changed as leaves wilt has been proven helpful for many women.?? Ice packs or frozen bags of peas also work nicely to ease the discomfort.?? The soreness will only last a couple of days. Keep your back turned to the water while showering to decrease breast stimulation. Wear a snug fitting bra such as a sports bra. Incision Care Following Tubal or Section: You may shower as directed by your doctor or performing artist.?? Pat your incision dry with a clean towel.??You will not need a bandage after the first day. Call your doctor or performing artist with any signs of infection such as a hard, hot swollen tender incision, especially if the skin around the incision looks pink or red.?? Yellow drainage with an odor may also be a sign of infection to report. Call your doctor or performing artist if the incision begins to separate. If you have steri-strips on the incision, they will likely fall off in the first week.?? If they have not fallen off by 10 days after delivery, you may remove them. Control: Your doctor or performing artist will discuss control methods with you when you are discharged from thehospital or at your checkup.?? Be sure to let your provider know if you are . You had a Paragard IUD placed on .?? This control method is effective for 10 years. You had a Liletta placed on .?? This control method is effective for up to 5 years. You had a Nexplanon placed on .?? This control method is effective for up to 3 years. You received a Depo Provera injection on .?? This control method is effective as longas you repeat it every 3 months.?? Schedule your next dose before . You have a prescription for control pills .?? It is important to take a pill everyday at around the same time of day for effective control protection.?? Pain Management: Cramping after is common and increases in strength with each baby you have.?? If you experience painful cramps, and have no allergies to acetaminophen (Tylenol) or ibuprofen (Motrin), you may continue to take these medications as you did in the hospital.?? Ibuprofen is also helpful with back aches following epidurals, perineal pain following a vaginal delivery, and moderate incisional pain after a section or a tubal ligation.?? If you experience gas distention, especially after surgery, you may take an over the counter medication called simethicone.?? Take these chewable tablets 4 times a day as needed and directed on the package.?? Keep moving.?? Walking or rocking in a chair, will help to move the gas along.?? Tano tea made with heated tano ben (instead of water) and a tea bag, stirred to dissolve carbonation (bubbles) is a helpful drink to soothe a gassy stomach. Warning Signs of a Problem to Notify Your Doctor or Wood Heel Attacher of: Heavy vaginal bleeding ??? which is soaking a pad every hour with bright red blood. Passing blood clots the size of an egg or larger. An incision that is not healing. A temperature greater than or equal to 100.4 especially if accompanied by any of the following symptoms ??? painful, frequent urination; extreme back or flank pain; lower belly pain with a foul smellto your vaginal flow; a red hard hot area on your breast.?? Severe headache that does not go away after taking acetaminophen or ibuprofen.?? A headache that changes your vision, including seeing spots or blurring. Right sided upper abdominal pain along the rib cage area. Pain in your legs that is warm and tender to the touch. depression signs may include ??? loss of interest in your baby, weepiness, difficulty focusing, weight loss with no appetite, exhaustion, feeling overwhelmed or anxious, feelings of despair, or thoughts of harming yourself or your baby.?? These symptoms are important and should be discussed with your doctor or performing artist. depression may develop over a period of time and needs prompt medical attention.?? Do not suffer in silence.?? In both the Becoming a Family booklet and the[facility] Guide there is a screening tool used to identify women at risk, called the [place] Scale which you have taken in the office prior to delivery and again during your hospital s govind.?? Three to four weeks after your delivery, and before your check with your provider, take this test and share your results with your provider.?? Be sure to mention any score of 10 or more.?? Many women, and even some partners, may experience the ???baby blues?? .?? This is a state of feeling overwhelmed and weepy.?? Discomfort from childbirth, hormonal changes, exhaustion, changes to your body and lifestyle are a few of the things that contribute to the highs and lows new parents go through.?? Don???t be afraid to ask your partner or family and friends for some help at home so you can get some rest and a few minutes to yourself.?? The blues will quickly pass. Personal Safety: Every person has the right to feel safe at home and live free from physical or emotional harm.?? Ifyou have suffered mental or physical abuse at home, you are not alone.?? There is help.?? Please call HOTLINE or the [employer] Program at [phone]. CARE Bathing: Give your baby a sponge bath until the cord falls off in about 1-3 weeks.?? It is not necessary to bathe your baby every day, usually every few days is sufficient. ??Keep the cord area dry.?? Some baby girls will have a small bloody vaginal discharge. No need to worry as this is normal. It is not necessary to use lotions on the baby???s skin.?? Powders and oils are not recommended.?? Babies often get rash on their skin which comes and goes quickly and does not require any special care.?? Diaper rash can be treated with a zinc oxide preparation such as Desitin or Balmex diaper cream. Circumcision Care: Your nurse will teach you how to care for your baby???s circumcision depending on the type of circumcision your doctor or performing artist performed.?? Most circumcisions require A&& ointment for about 4-5 days.?? Be generous with the amount of A&& used as this will prevent the diaper from sticking when you go to change it. If a plastibell circumcision was done, the plastic ring around the penis will fall off in a week orso. Diapers: After the 1st??few days, the baby will start wetting more often.?? A breast fed baby will wet about6-8 times a day once mom???s milk comes in ??? usually day 4 or 5.?? This is a good sign that the baby is getting plenty to eat.?? You may notice an orangey-pink stain in the diaper which is normal for the first few days. The baby???s first bowel movements are sticky, black and tarry.?? As the baby starts to feed more often over the next couple of days, the stool will change to a seedy yellowish green color and eventually a loose mustard like stool for a breast fed baby and a more formed yellow stool for a bottle fed baby. your Baby: ??Congratulations on deciding to breastfeed your baby! You are providing your baby with the most nourishing food source on the planet, your breast milk.?? Cues such as rooting, suckling, licking and fussing may be telling you that your baby is ready to eat ??? and it is time to offer your breasts. The first weeks following the are a time for you and your baby to learn.?? The baby may be sleepy the first day after with 8 to 12 attempts ??? including 2 to 4 good feedings.?? Over the next couple of days the baby will become more wakeful, feed 8 to 12 times a day and have more wet and poopy diapers.?? Cluster feeding, especially during the evening/night time, is normal. ?? Listen for swallowing sounds and watch the baby as they become more relaxed at the breast ??? both good signs that the baby is getting a good amount of milk.?? Refrain from smoking or eating edible marijuana while you are . Even though marijuana is legal in the state of [place],??it is harmful for your baby.??It stays in breast milk for along period of time and THC can be found in the baby's urine for up to 3 weeks. Second hand smoke can also increase the risk??of Sudden Infant Syndrome / SIDS. ?? Nursing is wonderful but many moms and babies have some degree of difficulty with at first. Don???t give up!?? There are many resources available to help you overcome these temporary problems. Your workforce specialist wants to hear from you if you are having difficulties and can offermany helpful suggestions.?? Some offices have consultants on staff. [facility]???s Consultation Service is available 7 days a week, 8am to 3pm at [phone].?? Press 1 to schedule an outpatient appointment.?? Press 3 to leave a message for the integrity consultant, a at&t retailer sales consultant will return your call that day or the next if you call after 3pm. Support Groups ??? [facility] offers free gatherings for moms and babies weekly.?? All groups meet at the [facility]???s 2nd??floor, typically in the [facility] Conference Room, Wednesday???s 1 to 2 pm.?? Rosalia Treviño is a worldwide organization with local community support, mother to mother support.?? Information can be found at https://www.lllusa.org Formula Feeding your Baby: Formula fed babies should eat every 3 to 4 hours.?? Look for cues that your baby is ready ??? such as rooting and sucking, licking and fussing.?? At the baby???s stomach is small and may take 10-15ml of formula.?? Over the next few days the baby will become more wakeful and feed more frequently, gradually increasing the amounts of formula taken at a feeding.?? Your workforce specialist will provideinstructions on how to increase the amount.?? Refer to packaging for formula preparation directions, depending on the type of formula you purchase ??? powder, concentrate or ready to feed. Safety: ALWAYS REMEMBER - BACK TO SLEEP! Babies sleep safest on their backs.?? Every sleep.?? Every time.?? Every nap. Babies need a firm sleep surface with a tight fitting bottom sheet.?? NO loose bedding.?? NO pillows.?? NO bumper pads or rolls.?? NO heavy or fluffy blankets. NO stuffed toys. It is not safe for your baby to sleep in your bed, in a chair, or on a sofa.?? Your baby should notsleep with you or anyone else. Car Seat: Always place your baby in a rear facing car seat in the backseat of the car. Car seat inserts that come with the car seat can be used as they are crash tested with the seat.?? You should not buy additional inserts.?? Dress the baby in a weather appropriate outfit.?? Avoid bulky clothing such as snowsuits or jackets as the baby may squirm in the seat, loosening the shoulder straps and come out of the top of the harness if you need to brake hard or are in an accident.?? Once the baby issecured in the seat you can cover your little one with a blanket if needed.?? If your baby was bornprematurely, follow the directions given to you.?? If you have not already done so, check to make sure your car seat is installed correctly. Check with your local Fire and Police Department to see if they offer car seat inspections at a location close to you. Babies Can Move: ?? Never leave your baby unattended on any surface, raised or flat, or while bathing.?? They can squirm, fall or hurt themselves.?? Always fasten the safety belt when using an infantseat or swing ??? as they may lean forward and fall. Good Handwashing is the number one way you can protect the baby from too?? many germs and prevent infection.?? When family and friends visit ask that they wash their hands before holding your baby.??Also avoid crowds the first month of your baby???s life to protect from colds and flus. Shaking a baby out of frustration can cause severe and lasting damage, even to a baby.?? If you feel you are becoming angry or overwhelmed, place the baby in a safe place and walk away.?? Call a friend or family member.?? If they are not able to offer immediate help call the Parental Stress Hotline at?? , an anonymous 25/01 source of help. Warning Signs to notify your workforce specialist of: Most babies develop a small amount of jaundice (a yellowish skin color) in the face and upper chest, by about 3 days of age.?? If the yellow color extends below the baby???s belly or if the baby is very sleepy and not feeding well, call your workforce specialist. A rectal temperature of 100.4F as it could be a sign of infection. Projectile vomiting that continues with each feeding could indicate reflux or a problem with the formula. Extreme sleepiness or very fussy. Cold symptoms with nasal stuffiness, especially if the baby is having difficulty feeding. Constipation with hard stools. Blue or dusky color, call 490. If Your Baby Needs to Remain in the Hospital: Please leave your baby???s ID bracelets on if your baby needs to remain in the hospital after you are discharged home. The phone number to NICU is [phone]. The phone number to [facility] is [phone]. The phone number to Bibi Nguyen 2 is [phone]. moms should pump every 2-3 hours or 8-12 times in 24 hours.?? If unable to place the baby to breast, if you are having difficulty getting the baby to latch on, or if the baby remains inthe hospital after you are discharged ??? bring the pumped milk to the hospital, labeled with name,date and time.?? Carry it in a small cooler or diaper bag with an ice pack and bring it the next time you visit your baby.?? Consultation Services is available if you need to rent or purchase a pump or products.?? Call and leave a message at [phone] ??? press 3 and a [employer] retailer sales consultant will return your call that day or the next if you call after 3pm. ? * Jaida Cool: PERFORM Event Display: Care Team Progress Note Authored Date: [id number] Patient: ??ROSSY JAMES ? Age:??22 Years?Sex:??Female?:??2000?? Subjective Cart Round Visit (DAY 1) Pt reports Formula feeding today due to blood sugars and felt that she wasn't making enough milk. States that she started pumping using personal use pump Assessment/Plan Encouraged patient to pump every few hours, on baby's feeding schedule to get at least 8 in in a 24hour period. Encouraged double pumping, patient prefers single pumping. Education regarding stimulation, frequency, duration for milk adequate milk supply. Pt plans to bottle feed for now, aware of continued support if requested OB Summary : 4 Parity: 1 . Baby A - Weight: 2.045 kg Baby A - Date, Time of : 06/22/22 09:16:00 Baby A - Gender: Female Baby A - Complications: None EGA at Documented Date, Time: 37W 1D Weight at Delivery Baby A - Delivery Type: Vaginal Delivery Complications: None OB History History?(1,0,2,1)? # 1 ?Baby 1 ?Outcome Date:??12/21/2017?Outcome or Result:??Spontaneous ?Gest Age:??11 weeks ? Outcome:? Sex:??-- ?Maternal Complications:??Substance abuse ?Hospital:??[facility] ?Comment:??Miso used ?? # 2 ?Baby 1 ?Outcome Date:??05/13/2019?Outcome or Result:??Vaginal ?Gest Age:??Fullterm ? Outcome:??Live ? Sex:??Female ?? # 3 ?Baby 1 ?Outcome Date:??07/19/2019?Outcome or Result:??Therapeutic , medical ?Gest Age:??-- ? Outcome:? Sex:??-- Active Problem List Active Problem List Anxiety: (Medical) admits to heart racing and always crying overthinking Patient reports anxiety is no longer a problem and that it was mostly due to having her daughter at ?? a young age Back pain with sciatica: (Medical) BMI 20.0-20.9, adult: (Medical) COVID-19: (Medical) History of marijuana use: (Medical) History of depression: (Medical) IBS (irritable bowel syndrome): (Medical) Not taking medication for IBS : (Obstetric) (10/05/21) : (Medical) Home Medications Docusate: 100 mg = 1 capsule, By Mouth, 2 times a day, PRN (for constipation) Doxylamine: 25 mg = 1 tablet, By Mouth, Daily at bedtime Multivitamin, : 1 tablet, By Mouth, Daily Pyridoxine: 25 mg = 1 tablet, By Mouth, Daily Medications Medications (2) Active SCHEDULED: (0) CONTINUOUS: (0) PRN: (2) Acetaminophen 325 mg Tablet (Acetaminophen Tablet) ??650 mg, By Mouth, Every 4 hours Ibuprofen 800 mg Tablet (Ibuprofen Tablet) ??800 mg, By Mouth, Every 8 hours Patient Care team information Care Team Personnel Name: Kathy RUSH , Sigridh A Position: [facility] Physician -Physician Practices Member Role: PCP Address: Address: [address] [place] [address]- Name: Salazar Ramos Position: [facility] OB RN Member Role: Patient Care Provider Name: Wilmer Grace RN Position: [facility] OB RN Member Role: Patient Care Provider Care Team Related Persons Name: SUSIE JAMES Address: home [address] [place] [address] Name: ROSSY JAMES GIRL Address: [address] Address: home [address] [place] [address] [place] Name: TANESHA BULLARD Address: home [address] [address] Name: PATRICK CUEVAS Address: home [address] [place] [address]
--- OUTSIDE RECORDS SUMMARY | 2023-11-21 01:25 | XMS_ITS | Continuity of Care Document ---
Author Organization [facility] Address [address] [facility], 4t [place] [address]- Care Team Providers Care Bar Hostess Name Role Phone Kathy RUSH, Hector Greenberg Primary Care Physician Encounter [facility] Date(s): 06/10/22 - 07/23/22 [facility] [address], 4th [place] [address]- Attending Physician: Tarah Miles MD Referring Physician: [...] give 325mg per patient preference and re-dose [id number] within 4 hours, if needed. Patient should only receive a total of 650mg of Acetaminophen every 4 hours., Refills 0, Maintenance, Pain , Mild, 1... Start Date: 06/24/22 Status: Ordered Nexplanon 68 mg subcutaneous implant 1 each = 68 mg, Subcutaneous Infusion, Once, # 1 each, 0 Refills, Soft Stop, 07/14/22 10:31:00 EST,[facility], Partial fill upon patient request [...] Team Personnel Name: Hector Chavez MD Position: [facility] Physician -Physician Practices Member Role: PCP Address: Address: [address] [place] [address]- Care Team Related Persons Name: SUSIE JAMES Address: home [address] [place] [address] Name: TANESHA BULLARD Address: [address] [address] Name: ALPHONSO BULLARD Address: [address] Address: home [address] [place] [address] Name: PATRICK CUEVAS Address: [address] [place] [address]
--- OUTSIDE RECORDS SUMMARY | 2023-11-21 01:25 | XMS_ITS | Continuity of Care Document ---
Author Organization [facility] ter Address [address] [place] [address]- Care Team Providers Care Generator Man Name Role Phone Hector Chaevz MD Primary Care Physician [place] [facility] - 11/18/[address] [address]- Discharge Disposition: A-D/C Home Attending Physician: Lai RUSH [OB], Charu Cormier Admitting Physician: Lai RUSH [OB], Charu Cormier Referring Physician: Lai RUSH [OB], Charu Cormier Allergies, Adverse Reactions, Alerts No Known Allergies Medications Colace sodium 100 mg oral capsule 100 mg, 1, capsule, By Mouth, 2 times a day, PRN, # 60 capsule, Refills 2, Tot. Refills 2, Maintenance, for constipation, 11/18/21 15:52:00 EDT, Route to Pharmacy Electronically, [facility]/pharmacy #[id number], Partial fill upon patient request if the prescriptio... Start Date: 11/18/21 Status: Ordered PNV oral tablet 1 tablet, By Mouth, Daily, 0 Refills, Maintenance, 11/29/18 13:11:44 EDT Start Date: 11/29/18 Status: Ordered terconazole topical 0.8% cream 1 application, Vaginally, Daily at bedtime, for 3 days, # 20 Gm, 0 Refills, Acute 11/21/21 15:51:00EDT, 11/18/21 15:51:00 EDT, Cream, [facility]/pharmacy #[id number], Partial fill upon patient request if the prescription is for a schedule II opioid drug., 1 appli... Start Date: 11/18/21 Stop Date: 11/21/21 Status: Ordered Tylenol 325 mg oral tablet 975 mg, Tablet, By Mouth, Every 6 hours, PRN for Pain , Moderate, Routine, 11/18/21 13:30:00 EDT Start Date: 11/18/21 Stop Date: 12/18/21 Status: Ordered Problem List Condition Effective Dates Status Health Status Inform ant Anxiety(Confirmed) 1 Active BMI 20.0-20.9, adult(Confirmed) Active History of depression(Confirmed) 2 Active History of marijuana use(Confirmed) Active IBS (irritable bowel syndrome)(Confirmed) 3 Active Encounter for supervision of other normal , second trimester(Confirmed) Active Placental abnormality(Confirmed) Active Rubella equivocal - needs MM R after delivery(Confirmed) Active 1admits to heart racing and always crying overthinking 2States has feelings og depression. Would like to see therapist. 3Not taking medication for IBS Vital Signs Most recent to oldest [Reference Range]: 1 2 Weight 61.1 kg (11/18/21 12:23 PM) Oxygen Saturation [94-100 %] 100 % (11/18/21 12:23 PM) Pulse Rate [55-90 bpm] 69 bpm (11/18/21 12:23 PM) Blood Pressure [90-138/55-84 mm Hg] 113/ 59mm Hg (11/18/21 12:23 PM) Respiratory Rate [16-30 br/min] 16 br/mi n (11/18/21 3:22 PM) 17 br/min (11/18/21 12:23 PM) Temperature [96.8-100.4 DegF] 98.9 DegF (11/18/21 12:23 PM) Blood pressure sites Arm, left (11/18/21 12:23 PM) Temperature Route Oral (11/18/21 12:23 PM) Weight Obtained Via Standing scale (11/18/21 12:23 PM) Social History Social History Type Response Smoking Status Former smoker, quit more than 30 days ago; Tobacco user in household: No entered on: 09/30/18 Sex
--- OUTSIDE RECORDS SUMMARY | 2023-11-21 01:25 | XMS_ITS | Continuity of Care Document ---
Author Organization [facility] ter Address [address] [place] [address]- Care Team Providers Care Clerical Adjuster Name Role Phone Kathy RUSH, Hector Greenberg Primary Care Physician [place] [facility] [place] - 02/19/[address] [address]- Discharge Disposition: A-D/C Home Attending Physician: Sabina Blackmon MD Admitting Physician: Sabina Blackmon MD Referring Physician: Sabina Blackmon MD Allergies, Adverse Reactions, Alerts No Known Allergies Medications Colace sodium 100 mg oral capsule 100 mg, 1, capsule, By Mouth, 2 times a day, PRN, # 60 capsule, Refills 2, Tot. Refills 2, Maintenance, for constipation, 11/18/21 15:52:00 EDT, Route to Pharmacy Electronically, [facility]/pharmacy #[id number], Partial fill upon patient request if the prescriptio... Start Date: 11/18/21 Status: Ordered PNV oral tablet 1 tablet, By Mouth, Daily, 0 Refills, Maintenance, 11/29/18 13:11:44 EDT Start Date: 11/29/18 Status: Ordered Tylenol 325 mg oral tablet 975 mg, Tablet, By Mouth, Every 6 hours, PRN for Pain , Moderate, Routine, 02/19/22 16:06:00 EDT Start Date: 02/19/22 Stop Date: 02/20/22 Status: Discontinued Unisom 25 mg oral tablet 1 tablet [...] 15:43:00 EDT, [facility]/pharmacy #[id number], Partial fill upon patient request if the [...] see therapist. 2Not taking medication for IBS Vital Signs Most recent to oldest [Reference Range]: 1 2 Weight 63 kg (02/19/22 1:36 PM) Oxygen Saturation [94-100 %] 100 % (02/19/22 1:36 PM) Pulse Rate [55-90 bpm] 70 bpm (02/19/22 1:36 PM) Blood Pressure [90-138/55-84 mm Hg] 115/ 55mm Hg (02/19/22 1:36 PM) Respiratory Rate [16-30 br/min] 18 br/mi n (02/19/22 4:39 PM) 18 br/min (02/19/22 1:36 PM) Temperature [96.8-100.4 DegF] 98.6 DegF (02/19/22 1:36 PM) Mode of Delivery (Oxygen) Room air (02/19/22 1:36 PM) Blood pressure sites Arm, right 1 (02/19/22 1:36 PM) Temperature Route Oral (02/19/22 1:36 PM) Dry Weight 63 kg (02/19/22 1:36 PM) 1Result Comment: right upper arm measured 25.5cm Social History Social History Type Response Smoking Status Former smoker, quit more than 30 days ago entered on: 12/08/21 Sex
--- OUTSIDE RECORDS SUMMARY | 2023-11-21 01:25 | XMS_ITS | Continuity of Care Document ---
Author Organization [facility] Address [address] [address]- Care Team Providers Care Heat Treat Supervisor Name Role Phone Kathy RUSH, Hector Greenberg Primary Care Physician Encounter [facility] Date(s[facility] 12/29/21 - 02/25/22 [facility] [address] [address] Attending Physician: Not on Staff, Attending MD Referring Physician: Melanie Quick CNM Allergies, Adverse Reactions, Alerts No Known [...] 11/18/21 15:52:00 EDT, Route to Pharmacy Electronically, [facility]/pharmacy #[id number], Partial fill upon patient request if the prescriptio... Start Date: 11/18/21 Status: Ordered PNV oral tablet 1 tablet, By Mouth, Daily, 0 Refills, Maintenance, 11/29/18 13:11:44 EDT Start Date: 11/29/18 Status: Ordered Unisom 25 mg oral tablet 1 tablet = 25 mg, By Mouth, Daily at bedtime, # 30 tablet, 0 Refills, Maintenance, 11/26/21 15:43:00 EDT, [facility]/pharmacy #[id number], Partial fill upon patient request if the prescription is for a schedule II opioid drug. Start Date: 11/26/21 Status: Ordered Vitamin B6 25 mg oral tablet 1 tablet = 25 mg, By Mouth, Daily, # 100 tablet, 0 Refills, Maintenance, 11/26/21 15:43:00 EDT, [facility]/pharmacy #[id number], Partial fill upon patient request if the prescription is for a schedule II opioid drug. Start Date: 11/26/21 Status: Ordered Problem List Condition Effective Dates Status Health Status Inform ant BMI 20.0-20.9, adult(Confirmed) Active History of depression(Confirmed) 1 Active History of marijuana use(Confirmed) Active IBS (irritable bowel syndrome)(Confirmed) 2 Active Encounter for supervision of other normal , second trimester(Confirmed) Active 1States has feelings og depression. Would like to see therapist. 2Not taking medication for IBS Social History Social History Type Response Smoking Status Former smoker, quit more than 30 days ago entered on: 12/08/21 Sex
--- OUTSIDE RECORDS SUMMARY | 2023-11-21 01:25 | XMS_ITS | Continuity of Care Document ---
Author Organization [facility] Address [address] [facility], [address] [place] [address]- Care Team Providers Care Ladle Cleaner Name Role Phone Kathy RUSH, Hector Greenberg Primary Care Physician [id number] Date(s): 12/29/21 - 01/28/22 [facility] [address] [facility], [address]th [place], [place] [address] Attending Physician: Raj Smith Admitting Physician: Raj Smith Referring Physician: Raj Smith Allergies, Adverse Reactions, Alerts No Known Allergies Medications Colace sodium 100 mg oral capsule 100 mg, 1, capsule, By Mouth, 2 times a day, PRN, # 60 capsule, Refills 2, Tot. Refills 2, Maintenance, for constipation, 11/18/21 15:52:00 EDT, Route to Pharmacy Electronically, [facility]/pharmacy #[id number], Partial fill upon patient request if the prescriptio... Start Date: 11/18/21 Status: Ordered PNV oral tablet 1 tablet, By Mouth, Daily, 0 Refills, Maintenance, 11/29/18 13:11:44 EDT Start Date: 11/29/18 Status: Ordered Unisom 25 mg oral tablet 1 tablet = 25 mg, By Mouth, Daily at bedtime, # 30 tablet, 0 Refills, Maintenance, 11/26/21 15:43:00 EDT, [facility]/pharmacy #[id number], Partial fill upon patient request if the prescription is for a schedule II opioid drug. Start Date: 11/26/21 Status: Ordered Vitamin B6 25 mg oral tablet 1 tablet = 25 mg, By Mouth, Daily, # 100 tablet, 0 Refills, Maintenance, 11/26/21 15:43:00 EDT, [facility]/pharmacy #[id number], Partial fill upon patient request if the [...]
--- OUTSIDE RECORDS SUMMARY | 2023-11-21 01:25 | XMS_ITS | Continuity of Care Document ---
Author Organization [facility] David [facility] Address [address] [facility], 4t [place] [address]- Care Team Providers Care Head Waiter/Waitress Banquet Name Role Phone Kathy RUSH, Hector Greenberg Primary Care Physician En[place] [facility] [place] Date(s): 06/10/22 - 08/02/22 [facility]arn[facility] [address], 4th [place] [address]- Attending Physician: Vivi Cox MD Referring Physician: [...] give 325mg per patient preference and re-dose [id number] within 4 hours, if needed. Patient should only receive a total of 650mg of Acetaminophen every 4 hours., Refills 0, Maintenance, Pain , Mild, 1... Start Date: 06/24/22 Status: Ordered Nexplanon 68 mg subcutaneous implant 1 each = 68 mg, Subcutaneous Infusion, Once, # 1 each, 0 Refills, Soft Stop, 07/14/22 10:31:00 EST,[facility], Partial fill upon patient request [...] -Physician Practices Member Role: PCP Address: Address: [address] [place] [address]- Care Team Related Persons Name: SUSIE JAMES Address: home [address] [place] [address] Name: TANESHA BULLARD Address: [address] [address] Name: ALPHONSO BULLARD Address: [address] Address: home [address] [place] [address] Name: PATRICK CUEVAS Address: [address] [place] [address]
--- OUTSIDE RECORDS SUMMARY | 2023-11-21 01:25 | XMS_ITS | Continuity of Care Document ---
Author Organization [facility] David [facility] Address [address] [facility], 4t [place] [address]- Care Team Providers Care Machinery Erector Name Role Phone Kathy RUSH, Hector Greenberg Primary Care Physician [place] [facility] [place] [facility]/09/[facility] [address], 4th [place] [address]- Attending Physician: Vivi Cox MD Referring Physician: [...] give 325mg per patient preference and re-dose [id number] within 4 hours, if needed. Patient should only receive a total of 650mg of Acetaminophen every 4 hours., Refills 0, Maintenance, Pain , Mild, 1... Start Date: 06/24/22 Status: Ordered Nexplanon 68 mg subcutaneous implant 1 each = 68 mg, Subcutaneous Infusion, Once, # 1 each, 0 Refills, Soft Stop, 07/14/22 10:31:00 EST,[facility], Partial fill upon patient request [...] Name: Kathy RUSH , Hector Greenberg Position: [facility] Physician -Physician Practices Member Role: PCP Address: Address: [address] [place] [address]- Care Team Related Persons Name: SUSIE JAMES Address: home [address] [place] [address] Name: TANESHA BULLARD Address: home [address] [address] Name: ALPHONSO BULLARD Address: [address] Address: home [address] [place] [address] Name: PATRICK CUEVAS Address: home [address] [place] [address]
--- OUTSIDE RECORDS SUMMARY | 2023-11-21 01:25 | XMS_ITS | Continuity of Care Document ---
Author Organization [facility] Address [address] [place] [address]- Care Team Providers Care Maintenance Of Way Foreman Name Role Phone Hector Chavez MD Primary Care Physician [place] [facility]15/[place] - 07/15/[address] [address]- Attending Physician: Raj Smith Admitting Physician: AdmRaj santana Referring Physician: Admtr, ArLetty Allergies, Adverse Reactions, [...] give 325mg per patient preference and re-dose [id number] within 4 hours, if needed. Patient should [...] -Physician Practices Member Role: PCP Address: Address: [address] [place] [address]- Care Team Related Persons Name: SUSIE JAMES Address: home [address] [place] [address] Name: TANESHA BULLARD Address: home [address] [address] Name: ALPHONSO BULLARD Address: [address] Address: home [address] [place] [address] Name: PATRICK CUEVAS Address: home [address] [place] [address]
--- OUTSIDE RECORDS SUMMARY | 2023-11-21 01:25 | XMS_ITS | Continuity of Care Document ---
Author Organization [facility] Address [address] [place] [address]- Care Team Providers Care Facing Baster Name Role Phone Hector Chavez MD Primary Care Physician [place] [facility] [place] - 07/15/22 [facility] [address] [place] [address]- Attending Physician: Raj Smith Admitting Physician: AdmRaj santana Referring Physician: AdmtrRaj Allergies, Adverse Reactions, Alerts [...] give 325mg per patient preference and re-dose [id number] within 4 hours, if needed. Patient should only receive a total of 650mg of Acetaminophen every 4 hours., Refills 0, Maintenance, Pain , Mild, 1... Start Date: 06/24/22 Status: Ordered Nexplanon 68 mg subcutaneous implant 1 each = 68 mg, Subcutaneous Infusion, Once, # 1 each, 0 Refills, Soft Stop, 07/14/22 10:31:00 EST,[facility], Partial fill upon [...] Name: Kathy RUSH , Hector Greenberg Position: [facility] Physician -Physician Practices Member Role: PCP Address: Address: [address] [place] [address]- Care Team Related Persons Name: SUSIE JAMES Address: home [address] [place] [address] Name: TANESHA BULLARD Address: home [address] [address] Name: ALPHONSO BULLARD Address: [address] Address: [address] [place] [address] Name: PATRICK CUEVAS Address: [address] [place] [address]
--- OUTSIDE RECORDS SUMMARY | 2023-11-21 01:25 | XMS_ITS | Continuity of Care Document ---
Author Organization [facility] Address [address] [place] [address]- Care Team Providers Care Head Filter Tank Tender Helper Name Role Phone Hector Chavez MD Primary Care Physician En[place] [facility] Date(s): 06/11/22 - 07/15/22 [facility] [address] [place], [place] [address] Attending Physician: Not on Staff, Attending MD Allergies, Adverse Reactions, Alerts No Known [...] give 325mg per patient preference and re-dose [id number] within 4 hours, if needed. Patient should only receive a total of 650mg of Acetaminophen every 4 hours., Refills 0, Maintenance, Pain , Mild, 1... Start Date: 06/24/22 Status: Ordered Nexplanon 68 mg subcutaneous implant 1 each = 68 mg, Subcutaneous Infusion, Once, # 1 each, 0 Refills, Soft Stop, 07/14/22 10:31:00 EST,[facility], Partial fill upon patient [...] Team Personnel Name: Hector Chavez MD Position: [facility] Physician -Physician Practices Member Role: PCP Address: Address: [address] [place] [address]- Care Team Related Persons Name: SUSIE JAMES Address: [address] [place] [address] Name: TANESHA BULLARD Address: home [address] [address] Name: ALPHONSO BULLARD Address: [address] Address: [address] [place] [address] Name: PATRICK CUEVAS Address: [address] [place] [address]
--- OUTSIDE RECORDS SUMMARY | 2023-11-21 01:25 | XMS_ITS | Continuity of Care Document ---
Author Organization [facility] Address Unknown Care Team Providers Care Lean Leader Name Role Phone Kathy RUSH, Hector Greenberg Primary Care Physician [place] [facility] [place] 12[place]26/21 [facility] Allergies, Adverse Reactions, Alerts No Known Allergies Medications Colace sodium 100 mg oral capsule 100 mg, 1, capsule, By Mouth, 2 times a day, PRN, # 60 capsule, Refills 2, Tot. Refills 2, Maintenance, for constipation, 11/18/21 15:52:00 EDT, Route to Pharmacy Electronically, [facility]/pharmacy #[id number], Partial fill upon patient request if the prescriptio... Start Date: 11/18/21 Status: Ordered PNV oral tablet 1 tablet, By Mouth, Daily, 0 Refills, Maintenance, 11/29/18 13:11:44 EDT Start Date: 11/29/18 Status: Ordered Unisom 25 mg oral tablet 1 tablet = 25 mg, By Mouth, Daily at bedtime, # 30 tablet, 0 Refills, Maintenance, 11/26/21 15:43:00 EDT, [facility]/pharmacy #[id number], Partial fill upon patient request if the prescription is for a schedule II opioid drug. Start Date: 11/26/21 Status: Ordered Vitamin B6 25 mg oral tablet 1 tablet = 25 mg, By Mouth, Daily, # 100 tablet, 0 Refills, Maintenance, 11/26/21 15:43:00 EDT, [facility]/pharmacy #[id number], Partial fill upon patient request if [...]
--- OUTSIDE RECORDS SUMMARY | 2023-11-21 01:25 | XMS_ITS | Continuity of Care Document ---
Author Organization [facility] Address [address] [address]- Care Team Providers Care Heating And Cooling Systems Engineer Name Role Phone Kathy RUSH, Hector Greenberg Primary Care Physician [facility]counter [facility] Date(s): 01/29/22 - 02/28/22 [facility] [address] [address]- Allergies, Adverse Reactions, Alerts No Known Allergies [...] 11/18/21 15:52:00 EDT, Route to Pharmacy Electronically, [facility]/pharmacy #[id number], Partial fill upon patient request if the prescriptio... Start Date: 11/18/21 Status: Ordered PNV oral tablet 1 tablet, By Mouth, Daily, 0 Refills, Maintenance, 11/29/18 13:11:44 EDT Start Date: 11/29/18 Status: Ordered Unisom 25 mg oral tablet 1 tablet = 25 mg, By Mouth, Daily at bedtime, # 30 tablet, 0 Refills, Maintenance, 11/26/21 15:43:00 EDT, [facility]/pharmacy #[id number], Partial fill upon patient request if the prescription is for a schedule II opioid drug. Start Date: 11/26/21 Status: Ordered Vitamin B6 25 mg oral tablet 1 tablet = 25 mg, By Mouth, Daily, # 100 tablet, 0 Refills, Maintenance, 11/26/21 15:43:00 EDT, [facility]/pharmacy #[id number], Partial fill upon patient request if [...] Name: Kathy RUSH , Hector Greenberg Address: [address] [place] [id number]
--- OUTSIDE RECORDS SUMMARY | 2023-11-21 01:25 | XMS_ITS | Continuity of Care Document ---
Author Organization [facility] Address [address] [place] [address]- Care Team Providers Care Focusing Machine Operator Name Role Phone Kathy RUSH, Hector Greenberg Primary Care Physician [place] [facility] [place] - 07/30/[address] [address]- Attending Physician: Leanne De Jesus MD Admitting [...] give 325mg per patient preference and re-dose [id number] within 4 hours, if needed. Patient should only receive a total of 650mg of Acetaminophen every 4 hours., Refills 0, Maintenance, Pain , Mild, 1... Start Date: 06/24/22 Status: Ordered Nexplanon 68 mg subcutaneous implant 1 each = 68 mg, Subcutaneous Infusion, Once, # 1 each, 0 Refills, Soft Stop, 07/14/22 10:31:00 EST,[facility], Partial fill upon patient [...] Team Personnel Name: Hector Chavez MD Position: [facility] Physician -Physician Practices Member Role: PCP Address: Address: [address] [place] [address]- Care Team Related Persons Name: SUSIE JAMES Address: home [address] [place] [address] Name: TANESHA BULLARD Address: [address] [address] Name: ALPHONSO BULLARD Address: [address] Address: home [address] [place] [address] Name: PATRICK CUEVAS Address: home [address] [place] [address]
--- OUTSIDE RECORDS SUMMARY | 2023-11-21 01:25 | XMS_ITS | Continuity of Care Document ---
Author Organization [facility] Address [address] [address]- Care Team Providers Care Guitar Repairer Name Role Phone Kathy RUSH, Hector Greenberg Primary Care Physician [facility] Date[facility] 04[facility]22 - [facility] [address] [address]- Attending Physician: Carola Hodges CNM Admitting Physician: Carola Hodges CNM Referring Physician: Natasha Matos CNM Allergies, Adverse [...] 15:52:00 EDT, Route to Pharmacy Electronically, [facility]/pharmacy #[id number], Partial fill upon patient request if [...] Team Personnel Name: Hector Chavez MD Position: [facility] Physician -Physician Practices Member Role: PCP Address: Address: [address] [place] [address]- [place] Care Team Related Persons Name: SUSIE JAMES Address: home [address] [facility] [address] [place] [address] Name: TANESHA BULLARD Address: home [address] [facility] [address] [place] [address] Name: PATRICK CUEVAS Address: home [address] [place] [address]
--- OUTSIDE RECORDS SUMMARY | 2023-11-21 01:25 | XMS_ITS | Continuity of Care Document ---
Author Organization [facility] Address [address] [address]- Care Team Providers Care Motion Picture Printer Name Role Phone Kathy RUSH, Hector Greenberg Primary Care Physician [facility] Date[facility]s): [facility]22 - [facility] [address] [address]- Attending Physician: Carola Hodges CNM Admitting Physician: Carola Hodges CNM Referring Physician: Natasha Poe CNM Allergies, Adverse Reactions, Alerts No Known [...] 15:52:00 EDT, Route to Pharmacy Electronically, [facility]/pharmacy #[id number], Partial fill upon patient request if the prescriptio... Start Date: 11/18/21 Status: Ordered PNV oral tablet 1 tablet, By Mouth, Daily, 0 Refills, Maintenance, 11/29/18 13:11:44 EDT Start Date: 11/29/18 Status: Ordered Unisom 25 mg oral tablet 1 tablet = 25 mg, By Mouth, Daily at bedtime, # 30 tablet, 0 Refills, Maintenance, 11/26/21 15:43:00 EDT, [facility]/pharmacy #[id number], Partial fill upon patient request if the prescription is for a schedule II opioid drug. Start Date: 11/26/21 Status: Ordered Vitamin B6 25 mg oral tablet 1 tablet = 25 mg, By Mouth, Daily, # 100 tablet, 0 Refills, Maintenance, 11/26/21 15:43:00 EDT, [facility]/pharmacy #[id number], Partial fill upon patient request [...] on: 12/08/21 Sex Care Team Personnel Name: Hector Chavez MD Address: [address] [place] [id number]
--- OUTSIDE RECORDS SUMMARY | 2023-11-21 01:25 | XMS_ITS | Continuity of Care Document ---
Author Organization [facility] Address [address] [facility], [address] [place] [address]- Care Team Providers Care Pole Setter Name Role Phone Kathy RUSH, Hector Greenberg Primary Care Physician En[place] [facility] [place](s): 12/29/21 - 01/05/22 [facility] [address] [facility], 4th [place] [address]- Attending Physician: Vivi Cox MD Referring Physician: Melanie Quick CNM Allergies, [...]
--- OUTSIDE RECORDS SUMMARY | 2023-11-21 01:26 | XMS_ITS | Continuity of Care Document ---
Author Organization [facility] Address [address] [address]- Care Team Providers Care Letterpress Printing Machinist Name Role Phone Katyh RUSH, Hector Greenberg Primary Care Physician [facility] Date(s): 05/18/22 - [facility]/17/[facility] [address] [address]- Allergies, Adverse Reactions, Alerts No Known Allergies [...] 11/18/21 15:52:00 EDT, Route to Pharmacy Electronically, [facility]/pharmacy #[id number], Partial fill upon patient request if the prescriptio... Start Date: 11/18/21 Status: Ordered PNV oral tablet 1 tablet, By Mouth, Daily, 0 Refills, Maintenance, 11/29/18 13:11:44 EDT Start Date: 11/29/18 Status: Ordered Unisom 25 mg oral tablet 1 tablet = 25 mg, By Mouth, Daily at bedtime, # 30 tablet, 0 Refills, Maintenance, 11/26/21 15:43:00 EDT, [facility]/pharmacy #[id number], Partial fill upon patient request if the prescription is for a schedule II opioid drug. Start Date: 11/26/21 Status: Ordered Vitamin B6 25 mg oral tablet 1 tablet = 25 mg, By Mouth, Daily, # 100 tablet, 0 Refills, Maintenance, 11/26/21 15:43:00 EDT, [facility]/pharmacy #[id number], Partial fill upon patient request if [...] Name: Kathy RUSH , Hector Greenberg Position: [facility] Physician -Physician Practices Member Role: PCP Address: Address: [address] [place] [address]- [place] Care Team Related Persons Name: SUSIE JAMES Address: home [address] [address] Name: TANESHA BULLARD Address: home [address] [facility] [address] [place] [address] Name: PATRICK CUEVAS Address: home [address] [place] [address]
--- OUTSIDE RECORDS SUMMARY | 2023-11-21 01:26 | XMS_ITS | Continuity of Care Document ---
Author Organization [facility] Address [address] [address]- Care Team Providers Care Social Work Instructor Name Role Phone Kathy RUSH, Hector Greenberg Primary Care Physician [facility] Date(s): 04/29/22 - [facility]06/[facility] [address] [address]- Attending Physician: Not on Staff, Attending MD [...] give 325mg per patient preference and re-dose [id number] within 4 hours, if needed. Patient should only receive a total of 650mg of Acetaminophen every 4 hours., Refills 0, Maintenance, Pain , Mild, 1... Start Date: 06/24/22 Status: Ordered Nexplanon 68 mg subcutaneous implant 1 each = 68 mg, Subcutaneous Infusion, Once, # 1 each, 0 Refills, Soft Stop, 07/14/22 10:31:00 EST,[facility], Partial fill upon patient [...] Name: Kathy RUSH , Hector Greenberg Position: [facility] Physician -Physician Practices Member Role: PCP Address: Address: [address] [place] [address]- Care Team Related Persons Name: SUSIE JAMES Address: home [address] [place] [address] Name: TANESHA BULLARD Address: [address] [address] Name: ALPHONSO BULLARD Address: [address] Address: home [address] [place] [address] Name: PATRICK CUEVAS Address: [address] [place] [address]
--- OUTSIDE RECORDS SUMMARY | 2023-11-21 01:26 | XMS_ITS | Continuity of Care Document ---
Author Organization [facility] Address [address] [place] [address]- Care Team Providers Care Conduit Cleaner Name Role Phone Hector Chavez MD Primary Care Physician [place] [facility] [place] - 07/30/[address] [address]- Attending Physician: Deann Wong CNM Admitting Physician: [...] give 325mg per patient preference and re-dose [id number] within 4 hours, if needed. Patient should only receive a total of 650mg of Acetaminophen every 4 hours., Refills 0, Maintenance, Pain , Mild, 1... Start Date: 06/24/22 Status: Ordered Nexplanon 68 mg subcutaneous implant 1 each = 68 mg, Subcutaneous Infusion, Once, # 1 each, 0 Refills, Soft Stop, 07/14/22 10:31:00 EST,[facility], Partial fill upon patient [...] -Physician Practices Member Role: PCP Address: Address: [address] [place] [address]- Care Team Related Persons Name: SUSIE JAMES Address: home [address] [place] [address] Name: TANESHA BULLARD Address: home [address] [address] Name: ALPHONSO BULLARD Address: [address] Address: home [address] [place] [address] Name: PATRICK CUEVAS Address: home [address] [place] [address]
== END 2023-11-21 02:06 | disposition left against medical advice (07) ==
PROVIDERS: Emergency Provider Emergency Medicine; PCP Nurse Practitioner Primary Care
DX: S61.211A Laceration without foreign body of left index finger without damage to nail, initial encounter (principal); W26.0XXA Contact with knife, initial encounter; Y93.9 Activity, unspecified; Y92.009 Unspecified place in unspecified non-institutional (private) residence as the place of occurrence of the external cause; Y99.9 Unspecified external cause status; Z53.21 Procedure and treatment not carried out due to patient leaving prior to being seen by health care provider
CPT/HCPCS: 99281

== ENCOUNTER 2024-01-18 09:19 | Outpatient (AMB) | payer OTHER, SELFPAY ==
--- NOTE | 2024-01-18 09:22 | AM.OFFWIN_ITS ---
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 Patient states she has previously had corneal abrasions in his followed up with Ophthalmology, most recently approximately 4 months ago. Patient states for the past 4-6 weeks she has had sensitivity and ?discomfort? in her left eye with increased tearing. Patient denies any trauma or injury to her left eye. Patient started using [id number] eyedrops yesterday which she describes ?makes that I the patient denies having any headache, double vision or other visual changes. Patient does not wear contacts or glasses for her vision. [facility] Social History Patient Tobacco Use Status: Never used Tobacco Review of Systems Const All systems reviewed & are unremarkable except as noted in HPI and below Eyes Denies change in vision, Denies diplopia, Denies floaters, Reports irritation, Denies itchy eyes, Denies other visual disturbances, Reports eye pain (left eye), Denies requires corrective lenses, Denies seeing flashes and Denies photophobia ENT Reports no additional complaints Card Reports no additional complaints Resp Reports no additional complaints GI Reports no additional complaints Reports no additional complaints Musc Reports no additional complaints Skin/Breast Reports system reviewed and no additional complaints, except as documented Neuro Reports no additional complaints Psych Reports no additional complaints Endo Reports no additional complaints Alexis/Lymph Reports no additional complaints Aller/Immun Denies itchy eyes Physical Exam Vital Signs: Last Vital Signs Temp 98.0 F 01/18/24 09:27 Pulse 74 01/18/24 09:27 BP 112/62 01/18/24 09:27 Pulse Ox 98 01/18/24 09:27 BMI result Body Mass Index 24.1 Const General: cooperative, healthy appearing, comfortable, no acute distress, well developed, alert, awake and Physically active Nutritional Appearance: average body habitus Orientation/consciousness: patient oriented x3 Limitations: no limitations Eyes General: appearance normal, both eyes and all related structures Visual Valera: normal visual valera by confrontation Alignment and Position: alignment normal Periorbital: periorbital findings normal Eyelids: Yes eyelids normal (No evidence of hordeolum or chalazion) Conjunctivae: conjunctivae normal Sclerae: sclerae normal Corneas: corneas normal Pupils: Equal, round and reactive pupils present EOM: EOMs intact bilaterally Direct Ophthalmoscopy: no photophobia and No photophobia Neuro General: patient oriented x3 Cranial nerves: Yes Equal, round and reactive pupils present Psych Appearance: grossly normal Mental Status: mental status grossly normal Insight: Good insight present (Psych) Judgement: Good judgement present (Psych) Office Procedures Fluorescein eye exam Details: There is no evidence of an abrasion, ulceration or foreign body with fluorescein eye examination of the left eye. Assessment & Plan Assessment & Plan (1) Discomfort of left eye: Comment: There is no evidence of abrasion, ulceration or foreign body with fluorescein staining of the left eye. No evidence of a periorbital cellulitis. Patient will be referred to Ophthalmology. Code(s): H57.12 - Ocular pain, left eye Plan: Patient is to follow up with Ophthalmology, non urgently, for ongoing management of her symptoms. Coding Level of Care Code Est Pt Level 3 (18142) Diagnoses Discomfort of left eye H57.12 Time Spent (min) 25
[2024-01-18 09:27] VITALS: BP 112/62; PULSE 74; TEMP 36.7; O2SAT 98; BMI 24.1
== END 2024-01-18 09:49 | disposition home or self-care (01) ==
PROVIDERS: PCP Nurse Practitioner Primary Care; Visit Provider Physician Assistant
DX: H57.12 Ocular pain, left eye (principal)
CPT/HCPCS: 99213

== ENCOUNTER 2024-01-26 09:27 | Outpatient (AMB) | payer OTHER, SELFPAY ==
--- NOTE | 2024-01-26 10:07 | MHC.OFFVIS ---
Vital Signs 01/26/24 10:12 Height 5 ft 5 in Weight 148 lb 8 oz BMI 24.7 BP 124/70 Blood Pressure Location Rt brachial Position Sitting Pulse 98 Pulse Source Pulse Oximeter Temp 97.3 F Temp Source Temporal Artery Scan Pulse Oximetry (%) 99 Oxygen Delivery Method Room Air Intake Visit Reasons: EP Body ache, Fever, congestion Intake Note: Erin is a 23 year old female who presents to the office today for c/o body aches,fever,sore throat and congestion that started about 1.5 weeks ago. Allergies No Known Allergies Allergy (Verified 01/26/24 10:07) HPI Comments Details: Patient is a 23-year-old female complaining of 1-1/2-2 weeks of body aches, sore throat, feeling weak, a dry cough, head congestion, chest congestion at night, feelings of chills and then feeling feverish as well as ear pain. She denies any actual measured fevers. She also states she had laryngitis yesterday but has her voice back today. She denies any shortness of breath, chest pain, wheezing, nausea, vomiting or diarrhea. She denies any history of asthma. She did say she has been taking DayQuil for about the last 10 days and it seems to help a congestion a little bit. 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 She has 2 small children at home, 1 of which was sick recently and his illness resolve without antibiotics. She has tested for COVID 3 times, all of which have been negative. [facility] Social History Patient Tobacco Use Status: Never used Tobacco Review of Systems Const All systems reviewed & are unremarkable except as noted in HPI and below Physical Exam Vital Signs: Last Vital Signs Temp 97.3 F 01/26/24 10:12 Pulse 98 01/26/24 10:12 BP 124/70 01/26/24 10:12 Pulse Ox 99 01/26/24 10:12 Oxygen Delivery Method Room Air 01/26/24 10:12 BMI result Body Mass Index 24.7 Const General: cooperative, healthy appearing, comfortable and no acute distress Orientation/consciousness: patient oriented x3 Limitations: no limitations HEENT Head: Yes normal to inspection Ears: hearing grossly normal bilaterally, external ears normal and TM's normal bilaterally General nose exam: Normal external nose present, Normal nares present and No nasal discharge present Face and sinus: Yes normal facial exam and Yes sinuses nontender Mouth: Normal oral and palatal mucosa present and moist mucous membranes Throat: Yes tonsils normal, Yes uvula midline and Yes posterior oropharynx abnormal (Erythema) Eyes General: appearance normal, both eyes and all related structures Neck Neck: Yes normal visual inspection Resp Effort & Inspection: normal respiratory effort, able to speak in complete sentences, no respiratory distress, not tachypneic, no tripod positioning and no use of accessory muscles Auscultation: clear to auscultation bilaterally Cardio Rate: regular rate Rhythm: regular rhythm Heart sounds: normal S1 and S2 Skin General skin exam: no rashes or lesions noted Neuro General: patient oriented x3 Extrem General: Yes normal to inspection and Yes no clubbing, cyanosis or edema Results AMB Rapid Strep AMB Rapid Strep Negative Last Edit by Radha Hoyt CMA on 01/26/24 10:30 Results Reviewed Results Reviewed: Rapid strep negative Assessment & Plan Assessment & Plan (1) Atypical pneumonia: Code(s): J18.9 - Pneumonia, unspecified organism Category: Medical Plan: Rapid strep negative, vital signs stable, patient well-appearing. We will treat for atypical pneumonia that explained if COVID test is positive, she should stop taking the azithromycin. We have sent another COVID test today as well as flu and RSV. Plan See above Orders: Orders AMB Rapid Strep Screen Today Z13.9 - Encounter for screening, unspecified SARS-CoV2/FLU/RSV Today J06.9 - Acute upper respiratory infection, unspecified Medications: New azithromycin For 250 mg dose pack: take 500 mg today (day 1), then 250 mg for 4 days (days 2-5) PO 6 tabs 0RF Coding Level of Care Code New Pt Level 3 (31048) Diagnoses Atypical pneumonia J18.9
[2024-01-26 10:12] VITALS: BP 124/70; PULSE 98; TEMP 36.3; O2SAT 99; BMI 24.7
== END 2024-01-26 10:46 | disposition home or self-care (01) ==
PROVIDERS: PCP Nurse Practitioner Primary Care; Visit Provider Physician Assistant
DX: Z13.9 Encounter for screening, unspecified (principal); J18.9 Pneumonia, unspecified organism
CPT/HCPCS: 87880; 99203

== ENCOUNTER 2024-01-26 10:38 | Outpatient (REF) | payer OTHER, SELFPAY ==
[2024-01-26 14:12] LABS: Influenza A PCR NEGATIVE (Negative); Influenza B PCR NEGATIVE (Negative); Resp Syncy Virus RNA Qual PCR NEGATIVE (Negative); SARS COV2 PCR INHOUSE NEGATIVE (Negative)
== END 2024-01-26 10:39 | disposition home or self-care (01) ==
LOC: HO.LAB 10:38
PROVIDERS: Visit Provider Physician Assistant
DX: J06.9 Acute upper respiratory infection, unspecified (principal)
CPT/HCPCS: 0241U